=== PATIENT | female | born 1990 | race Caucasian/White ===

== ENCOUNTER 2016-07-21 09:26 | Emergency (ER) | payer OTHER ==
--- NOTE | 2016-07-21 09:38 | PDOC ---
History of Present Illness - General Stated Complaint: ABD PAIN Time Seen by Provider: 07/21/16 09:36 History Source: Patient, Parent(s) Exam Limitations: No Limitations - History of Present Illness Initial Comments: 07/21/16 9:45 CHIEF COMPLAINT: Abdominal pain PCP: Dr. Dejuan Gay HISTORY OF PRESENT ILLNESS: 25 year old female presented to the ED with the chief complaints of severe abdominal pain x 1 day. A/c to the patient, she developed abdominal pain located in the epigastric area, that woke her up from sleep, progressively getting worse, 10/10 in intensity, non radiating, stabbing/sharp in nature, no aggravating or relieving factors, associated with nausea but no episodes of vomiting. Patient had similar episode 2 weeks ago, went to [facility], had an imaging and found to have cholelithiasis and was asked to visit the ED if she develops abdominal pain, hence came in today. Patient had visited ED at [facility] on 02/05/2016 with abdominal pain, had abdominal USG done and was diagnosed with Cholethiasis. Patient had been asked to follow up with a surgeon but the mother says she never knew her daughter had cholelithiasis. Denies headache, fever, chest pain sob, cough, palpitation. Bowel/Bladder habit normal. Patient went for colonoscopy and biopsy on 04/16/[address] Peters. Report: Colon, submucosal mass @ 30cm from anus. Biopsy: colonic mucosa without significant pathologic changes. Ileum: Ileal muscosa with marked reactive hyperplasia of muscosa associated with Lymphoid tissue. 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, lactose intolerant, cholelithiasis PAST SURGICAL HISTORY: As mentioned above Social History: Smoking: Denies Alcohol: Denies Drugs: Denies Family History:Unknown Allergies: Morphine:gets hives Chinese Yogurt Past History - Past Medical History Allergies/Adverse Reactions: Allergies Allergy/AdvReac Type Severity Reaction Status Date / Time morphine Allergy Verified 07/21/16 09:48 CZECH YOGURT Allergy Hives Uncoded 02/05/16 09:28 Home Medications: Ambulatory Orders Oxycodone HCl/Acetaminophen [Percocet 5-325 mg Tablet] 1 tab PO PRN PRN Sertraline HCl 50 mg PO DAILY 02/05/16 Trazodone HCl [Desyrel -] 25 mg PO HS 02/05/16 Polyethylene Glycol 3350 [Miralax (For Daily Use) -] 17 gm PO DAILY #1 bottle Asthma: Yes - Surgical History Abdominal Surgery: Yes (COLOSTOMY NAD ILEOSTOMY BOTH REVERSED) - Immunization History Immunization Up to Date: Yes - Psycho/Social/Smoking Cessation Hx Anxiety: Yes Suicidal Ideation: No Smoking History: Never smoked Have you smoked in the past 12 months: No Number of Cigarettes Smoked Daily: 0 Hx Alcohol Use: No Drug/Substance Use Hx: No Substance Use Type: None Review of Systems - Review of Systems Able to Perform ROS?: Yes Comments:: 07/21/16 11:03 CONSTITUTIONAL: Absent: fever, chills, diaphoresis, generalized weakness, malaise, loss of appetite HEENT: Absent: rhinorrhea, nasal congestion, throat pain, throat swelling, difficulty swallowing, mouth swelling, ear pain, eye pain, visual Changes CARDIOVASCULAR: Absent: chest pain, syncope, palpitations, irregular heart rate, lightheadedness , peripheral edema RESPIRATORY: Absent: cough, shortness of breath, dyspnea with exertion, orthopnea, wheezing, stridor, hemoptysis GASTROINTESTINAL: Present: abdominal pain, nausea Absent:abdominal distension, , vomiting, diarrhea, constipation, melena, hematochezia GENITOURINARY: Absent: dysuria, frequency, urgency, hesitancy, hematuria, flank pain, genital pain MUSCULOSKELETAL: Absent: myalgia, arthralgia, joint swelling SKIN: Absent: rash, itching, pallor HEMATOLOGIC/IMMUNOLOGIC: Absent: easy bleeding, easy bruising, lymphadenopathy, frequent infections ENDOCRINE: Absent: unexplained weight gain, unexplained weight loss, heat intolerance, cold intolerance NEUROLOGIC: Absent: headache, focal weakness or paresthesias, dizziness, unsteady gait, seizure, mental status changes, bladder or bowel incontinence PSYCHIATRIC: Absent: anxiety, depression, suicidal or homicidal ideation, hallucinations. Is the patient limited Yakut proficient: No *Physical Exam - Physical Exam Comments: 07/21/16 11:05 PE: GENERAL: Awake, alert, and fully oriented, in mild abdominal pain HEAD: No signs of trauma EYES: Nystagmus + , PERRLA, EOMI, no pallor or icterus ENT: Auricles normal inspection, hearing grossly normal, nares patent, oropharynx clear without exudates. Moist mucosa NECK: Normal ROM, supple, no lymphadenopathy, JVD, or masses LUNGS: Breath sounds equal, clear to auscultation bilaterally. No wheezes, and no crackles.. HEART: Regular rate and rhythm, normal S1 and S2, no murmurs, rubs or gallops ABDOMEN: Soft, nontender, normoactive bowel sounds. No guarding, no rebound. No masses EXTREMITIES: Normal range of motion, no edema. No clubbing or cyanosis. No cords, erythema, or tenderness NEUROLOGICAL: Cranial nerves II through XII grossly intact. Normal speech, normal gait SKIN: Warm, Dry, normal turgor, no rashes or lesions noted. ED Treatment Course - LABORATORY CBC & Chemistry Diagram: 07/21/16 10:06 07/21/16 10:06 Medical Decision Making - Medical Decision Making 07/21/16 9:30 Patient seen and examined at bed side. Vitals, BP-90/60mmHg, rest unremarkable. Physical examination: Positive finding: Tenderness on palpation over the epigastric area. Will order basic labs, UA, CXR, test IV NS @ 100mls/hr X-ray of abdomen flat/upright USG abdomen 07/21/16 11:00 Patient reassessed. Abdominal pain resolved. Abdominal X-ray shows fecal impaction USG abdomen : Contracted gall bladder with stones. 07/21/[address] Peters 14:20; 15:15; 15:30 A/P: Abdominal pain most likely a combination of fecal impaction and cholelithiasis Patient's abdominal pain completely resolved. She is hemodynamically stable. Will discharge patient home with Miralax She has an appointment on Sunday with Dr. Peters. Illness, Investigation and Plan of care explained to the patient and her mother. They verbalized understanding. Case seen and discussed with Dr. Lemus. *DC/Admit/Observation/Transfer Diagnosis at time of Disposition: Abdominal pain - Discharge Dispostion Disposition: HOME Condition at time of disposition: Guarded Admit: No - Prescriptions Prescriptions: Polyethylene Glycol 3350 [Miralax (For Daily Use) -] 17 gm PO DAILY #1 bottle - Patient Instructions Printed Discharge Instructions: Constipation, Gallstones Additional Instructions: Your blood work is normal. Abdominal x-ray shows fecal impaction. Abdominal ultrasound shows stones in the gall bladder. Please make sure you visit GI doctor as soon as possible for the above mentioned problem. Return to the Emergency Department immediately if your symptoms persist or you develop new symptoms.
[2016-07-21 09:48] VITALS: TEMP 98.7; BMI 20.9
[2016-07-21] MEDS ORDERED: SODIUM CHLORIDE 1,000 ML IV SCH (10:15)
--- NOTE | 2016-07-21 11:01 | PDOC ---
Attending Attestation - Resident Resident Name: Tiffani Simonsny - ED Attending Attestation I have performed the following: I have examined & evaluated the patient, The case was reviewed & discussed with the resident, I agree w/resident's findings & plan, Exceptions are as noted - HPI HPI: 07/21/16 11:01 This is a 25 yo F with a history of Hirschprungs disease, Choleithiasis who presents to the ER with a complaint of abdominal pain. symptoms located in the epigastric area, that woke her up from sleep, progressively getting worse, 10/10 in intensity, non radiating, stabbing/sharp in nature, no aggravating or relieving factors, associated with nausea but no episodes of vomiting. Denies headache, fever, chest pain sob, cough, palpitation. - Physicial Exam PE: 07/21/16 11:07 ON examination: epigastric tenderness to palpation No distention No lower abdominal tenderness No involuntary guarding No rebound tenderness - Medical Decision Making 07/22/16 07:24 Labs sent US demonstrates no PCCF No gallbladder wall thickening Pt has cholelithiasis Abd x ray demonstrates no air fluid levels Pt likely fecal impacted Will discharge to home Multiple calls placed to Dr Peters No response Will discharge Pt has follow up in 2 business days Return to the ER for any other concerns or complaints Heart Score/ECG Review #1 ECG reviewed & interpreted by me at: 11:25 07/21/16 11:25 Twelve-lead EKG was performed and reviewed by me. There is normal sinus rhythm with a normal rate of 66 bpm. The axis is normal. The intervals are normal - pr: 142ms, QRS:94ms, QTc:421ms. There are no ST or T wave abnormalities. RSR'
[2016-07-21 11:22] LABS: BASOPHIL 0.5 % (0-2.0); EOSINOPHIL 1.6 % (0-4.5); MCH 31.6 pg (25.7-33.7); MCHC 33.9 g/dl (32.0-36.0); MEAN CELL VOLUME 93.4 fl (80-96); MEAN PLT VOLUME 8.9 fl (7.5-11.1); NEUTROPHILS 52.1 % (42.8-82.8); PLATELET COUNT 202 K/MM3 (134-434); RDW 12.8 % (11.6-15.6)
[2016-07-21 11:53] LABS: URINE APPEARANCE CLEAR; URINE BILIRUBIN NEGATIVE (NEGATIVE); URINE BLOOD NEGATIVE (NEGATIVE); URINE COLOR DKYELLOW; URINE GLUCOSE (UA) NEGATIVE (NEGATIVE); URINE KETONE NEGATIVE (NEGATIVE); URINE LEUK ESTERASE NEGATIVE (NEGATIVE); URINE NITRITE NEGATIVE (NEGATIVE); URINE UROBILINOGEN NEGATIVE E.U./dl (0.2-1.0)
[2016-07-21 11:54] LABS: URINE PROTEIN 1+ (NEGATIVE)
[2016-07-21 11:55] LABS: URINE HYALINE CAST 2 /lpf; URINE MUCUS MANY; URINE RBC 1 /hpf (0-3); URINE WBC 2 /hpf (3-5)
[2016-07-21 11:56] LABS: ALK PHOS 94 U/L (45-117); ANION GAP 7 (8-16); BILIRUBIN,TOTAL 1.1 mg/dL (0.2-1.0); CALCIUM 9.6 mg/dL (8.5-10.1); CO2 30 mmol/L (21-32); CREATININE 0.6 mg/dL (0.55-1.02); GLUCOSE,RANDOM 82 mg/dL (74-106); SGOT/AST 12 U/L (15-37); SGPT/ALT 20 U/L (12-78); TOT PROT 7.8 g/dl (6.4-8.2)
--- NOTE | 2016-07-21 16:33 | EKG ---
Test Reason : Blood Pressure : / mmHG Vent. Rate : 066 BPM Atrial Rate : 066 BPM P-R Int : 142 ms QRS Dur : 094 ms QT Int : 402 ms P-R-T Axes : -05 029 030 degrees QTc Int : 421 ms NORMAL SINUS RHYTHM INCOMPLETE RIGHT BUNDLE BRANCH BLOCK Confirmed by MD JAIME, PAMELA ([id number]) on 07/21/2016 4:32:55 PM Referred By: Confirmed By:PAMELA SANDOVAL MD
[2016-07-21 16:36] VITALS: BP 90/65; PULSE 75
== END 2016-07-21 16:36 | disposition home or self-care (01) ==
LOC: JER 09:26
DX: K80.20 Calculus of gallbladder without cholecystitis without obstruction (principal); K59.00 Constipation, unspecified
CPT/HCPCS: 36415; 71020-TC; 74020-TC; 76705-TC; 80053; 81003; 81015; 83690; 84703; 85025; 93005; 93010; 99284-25

== ENCOUNTER 2016-07-31 18:11 | Inpatient (IN) | payer OTHER ==
--- NOTE | 2016-07-31 19:21 | PDOC ---
History of Present Illness - General Chief Complaint: Pain Stated Complaint: REVISIT/ADMIT Time Seen by Provider: 07/31/16 19:11 History Source: Patient Exam Limitations: No Limitations - History of Present Illness Initial Comments: CHIEF COMPLAINT: 25 y/o afebrile female sent in for admission by Dr. Peters for +HIDA scan. HISTORY OF PRESENT ILLNESS: The patient was here this morning for a HIDA scan. She was sent home and Dr. Peters called her and told her to come back for admission. The patient states she's had increasing RUQ pain for months. She denies f/c, n/v/d, CP, SOB, back pain. Vital signs on arrival are within normal limits. REVIEW OF SYSTEMS: GENERAL/CONSTITUTIONAL: No fever/chills. No weakness. No weight change. HEAD, EYES, EARS, NOSE AND THROAT: No change in vision. No ear pain or discharge. No sore throat. CARDIOVASCULAR: No chest pain or shortness of breath. RESPIRATORY: No cough, wheezing, or hemoptysis. GASTROINTESTINAL: +RUQ abd pain. No nausea, vomiting, diarrhea. GENITOURINARY: No dysuria, frequency, or change in urination. MUSCULOSKELETAL: No joint or muscle swelling or pain. No neck or back pain. SKIN: No rash or easy bruising. NEUROLOGIC: No headache, vertigo, loss of consciousness, or loss of sensation. PHYSICAL EXAM: GENERAL: The patient is awake, alert, and fully oriented, in no acute distress. She is well appearing and ambulatory. HEAD: Normal with no signs of trauma. ENT: Pupils equal, round and reactive to light, extraocular movements intact, sclera anicteric, conjunctiva clear. Neck supple. LUNGS: Clear to auscultation bilaterally. Normal excursion. No respiratory distress or use of accessory muscles. CV: RRR, S1/S2, no MRG. Cap refill < 2 sec. ABDOMEN: RUQ TTP with +cantor's sign. No rebound, guarding or rigidity. EXTREMITIES: Normal range of motion, no edema. NEUROLOGICAL: Normal speech, normal gait. CN II-XII grossly intact. PSYCH: Normal mood, normal affect. SKIN: Warm, dry, normal turgor, no rashes or lesions noted. Past History - Past Medical History Allergies/Adverse Reactions: Allergies Allergy/AdvReac Type Severity Reaction Status Date / Time morphine Allergy Verified 07/31/16 18:21 NORWEGIAN YOGURT Allergy Hives Uncoded 07/31/16 18:21 Home Medications: Ambulatory Orders Oxycodone HCl/Acetaminophen [Percocet 5-325 mg Tablet] 1 tab PO PRN PRN Sertraline HCl 50 mg PO DAILY 02/05/16 Trazodone HCl [Desyrel -] 25 mg PO HS 02/05/16 Polyethylene Glycol 3350 [Miralax (For Daily Use) -] 17 gm PO DAILY #1 bottle Asthma: Yes Psychiatric Problems: Yes (ANXEITY,PANIC, ADHD,SCHIZOPH) - Surgical History Abdominal Surgery: Yes (COLOSTOMY NAD ILEOSTOMY BOTH REVERSED) - Immunization History Immunization Up to Date: Yes - Psycho/Social/Smoking Cessation Hx Anxiety: Yes Suicidal Ideation: No Smoking History: Never smoked Have you smoked in the past 12 months: No Number of Cigarettes Smoked Daily: 0 Information on smoking cessation initiated: No Hx Alcohol Use: No Drug/Substance Use Hx: No Substance Use Type: None *Physical Exam - Vital Signs Last Vital Signs Temp Pulse Resp BP Pulse Ox 97.6 F 84 18 103/56 100 07/31/16 18:23 07/31/16 18:23 07/31/16 18:23 07/31/16 18:23 07/31/16 18:23 Medical Decision Making - Medical Decision Making A/P: 25 y/o female sent in by Dr. Peters for +hida scan and cholecystectomy tomorrow. Plan is to draw basic labs and call Dr. Valles for admission. Pt made NPO Spoke with Dr. Valles who states to admit to Dr. Vazquez. Pt made aware of plan. *DC/Admit/Observation/Transfer Diagnosis at time of Disposition: Cholelithiasis Qualifiers: Cholelithiasis location: gallbladder Cholecystitis presence: without cholecystitis Biliary obstruction: with biliary obstruction Qualified Code(s): K80.21 - Calculus of gallbladder without cholecystitis with obstruction - Discharge Dispostion Condition at time of disposition: Stable Admit: Yes - Referrals Referrals: Dejuan Gay [Primary Care Provider] -
[2016-07-31] MEDS ORDERED: SODIUM CHLORIDE 1,000 ML IV STA (19:22)
--- NOTE | 2016-07-31 19:51 | PDOC ---
*Physical Exam - Vital Signs Last Vital Signs Temp Pulse Resp BP Pulse Ox 97.6 F 84 18 103/56 100 07/31/16 18:23 07/31/16 18:23 07/31/16 18:23 07/31/16 18:23 07/31/16 18:23 Medical Decision Making - Medical Decision Making 07/31/16 19:50 agree with care from GRECIA Martinez. Pt for admission to Dr. Vazquez service for a +HIDA scan. Pt hemodynamically stable. *DC/Admit/Observation/Transfer Diagnosis at time of Disposition: Cholelithiasis Qualifiers: Cholelithiasis location: gallbladder Cholecystitis presence: without cholecystitis Biliary obstruction: with biliary obstruction Qualified Code(s): K80.21 - Calculus of gallbladder without cholecystitis with obstruction - Discharge Dispostion Condition at time of disposition: Stable - Referrals Referrals: Dejuan Gay [Primary Care Provider] - - Patient Instructions - Post Discharge Activity
[2016-07-31 20:50] LABS: HCG,QUALITATIVE URINE NEGATIVE
[2016-07-31 20:52] LABS: URINE APPEARANCE CLEAR; URINE BILIRUBIN NEGATIVE (NEGATIVE); URINE BLOOD NEGATIVE (NEGATIVE); URINE COLOR LTYELLOW; URINE GLUCOSE (UA) NEGATIVE (NEGATIVE); URINE KETONE NEGATIVE (NEGATIVE); URINE LEUK ESTERASE NEGATIVE (NEGATIVE); URINE NITRITE NEGATIVE (NEGATIVE); URINE PROTEIN NEGATIVE (NEGATIVE); URINE UROBILINOGEN 4.0 E.U/dl E.U./dl (0.2-1.0)
[2016-07-31 21:00] LABS: ALBUMIN 4.5 g/dl (3.4-5.0); ALK PHOS 102 U/L (45-117); ANION GAP 7 (8-16); BILIRUBIN,TOTAL 1.2 mg/dL (0.2-1.0); BLOOD UREA NITROGEN 15 mg/dL (7-18); CALCIUM 9.8 mg/dL (8.5-10.1); CHLORIDE 103 mmol/L (98-107); CO2 31 mmol/L (21-32); CREATININE 0.6 mg/dL (0.55-1.02); GLUCOSE,RANDOM 81 mg/dL (74-106); LIPASE 98 U/L (73-393); SGOT/AST 10 U/L (15-37); SGPT/ALT 16 U/L (12-78); SODIUM 141 mmol/L (136-145); TOT PROT 8.4 g/dl (6.4-8.2)
[2016-07-31 21:31] LABS: BASO % 0.7 % (0-2.0); EOS % 1.9 % (0-4.5); HEMATOCRIT 36.2 % (32.4-45.2); HEMOGLOBIN 12.3 GM/dL (10.7-15.3); LYMPH % 32.4 % (8-40); MCH 31.6 pg (25.7-33.7); MEAN PLT VOLUME 9.4 fl (7.5-11.1); MONO % 7.1 % (3.8-10.2); NEUT % 57.9 % (42.8-82.8); PLATELET COUNT 193 K/MM3 (134-434); RBC 3.89 M/mm3 (3.60-5.2); RDW 12.5 % (11.6-15.6); WHITE BLOOD COUNT 4.8 K/mm3 (4.0-10.0)
[2016-07-31] MEDS ORDERED: ACETAMINOPHEN 325 MG TABLET (FP) PO PRN (21:43)
[2016-07-31] MEDS ORDERED: traMADol HCL 50 MG TABLET ONE (22:32)
[2016-07-31] MEDS ORDERED: PIPERACILLIN/TAZOB 3.375 GM 50 ML IVPB ONE (22:33)
[2016-07-31] MEDS: HEPARIN NA (PORCINE) 5,000 UNITS/ML 1ML VIAL SQ SCH (22:44)
[2016-07-31] MEDS: PIPERACILLIN/TAZOB 3.375 GM/50 ML PRE-DOCKED IVPB SCH (22:44)
[2016-07-31] MEDS: traZODone HCL 50 MG TABLET (FP) PO SCH (22:45)
[2016-07-31] MEDS ORDERED: HEPARIN NA (PORCINE) 5,000 UNITS/ML 1ML VIAL ONE (22:52)
[2016-07-31] MEDS: D5-1/2NS+20 MEQ KCL - 1,000 ML IV SCH (23:45)
[2016-08-01 00:15] VITALS: BMI 17.2
[2016-08-01] MEDS: KETOROLAC TROMETHAMINE 30 MG/1 ML VIAL IM PRN ×3 (00:57→14:35)
[2016-08-01] MEDS: PIPERACILLIN/TAZOB 3.375 GM/50 ML PRE-DOCKED IVPB SCH (02:12)
[2016-08-01 08:02] LABS: BASO % 0.8 % (0-2.0); EOS % 2.1 % (0-4.5); HEMATOCRIT 32.8 % (32.4-45.2); HEMOGLOBIN 11.3 GM/dL (10.7-15.3); LYMPH % 35.7 % (8-40); MCHC 34.3 g/dl (32.0-36.0); MEAN CELL VOLUME 93.2 fl (80-96); MONO % 9.8 % (3.8-10.2); NEUT % 51.6 % (42.8-82.8); PLATELET COUNT 158 K/MM3 (134-434); RBC 3.52 M/mm3 (3.60-5.2); RDW 12.5 % (11.6-15.6); WHITE BLOOD COUNT 3.6 K/mm3 (4.0-10.0)
[2016-08-01 08:27] LABS: INR 1.2 (0.82-1.09); PROTHROMBIN TIME (PATIENT) 13.3 SEC (9.98-11.88)
[2016-08-01 08:30] LABS: ACTIVATED PTT 33.7 SECONDS (26.9-34.4)
[2016-08-01 08:31] LABS: CHLORIDE 107 mmol/L (98-107); POTASSIUM 3.8 mmol/L (3.5-5.1); SODIUM 142 mmol/L (136-145)
[2016-08-01 08:42] LABS: ALBUMIN 3.8 g/dl (3.4-5.0); ALK PHOS 79 U/L (45-117); ANION GAP 6 (8-16); BILIRUBIN,TOTAL 1.9 mg/dL (0.2-1.0); BLOOD UREA NITROGEN 10 mg/dL (7-18); CO2 29 mmol/L (21-32); CREATININE 0.7 mg/dL (0.55-1.02); GLUCOSE,RANDOM 88 mg/dL (74-106); SGOT/AST 10 U/L (15-37); SGPT/ALT 16 U/L (12-78); TOT PROT 6.8 g/dl (6.4-8.2)
[2016-08-01] MEDS: HEPARIN NA (PORCINE) 5,000 UNITS/ML 1ML VIAL SQ SCH ×2 (09:04→22:34)
[2016-08-01] MEDS: SERTRALINE HCL 50 MG TABLET (FP) PO SCH (09:04)
[2016-08-01] MEDS: D5-1/2NS+20 MEQ KCL - 1,000 ML IV SCH ×2 (09:09→22:34)
[2016-08-01] MEDS ORDERED: PIPERACILLIN/TAZOB 3.375 GM/50 ML PRE-DOCKED IVPB SCH (10:00)
--- NOTE | 2016-08-01 11:01 | CONSULT ---
Consult Consult Specialty:: Infectious Disease Referred by:: Dr. Vazquez Reason for Consultation:: Cholecystitis - History of Present Illness Chief Complaint: abdominal pain History of Present Illness: this is a 25F with a PMH of hirschsrpungs disease s/p colostomy with reversal s/ p ilesotomy with reversal who presnted to the hospital yesterday for outpatient HIDA scan. She was then called back after the HIDA was positive and told to come in for admission. She states she has had symptomatic cholelithiasis for about 2-3 years now. e. At the moment she denies nausea vomiting fevers chills diarrhea constipation chest pain or shortness of breath. Denies hematuria or dysuria. She states she still has abdominal pain at this time that is mostly localized in the epigastric and RUQ regions. in relation to food, she has abdominal pain on both an empty stomach and post prandially. Abdominal pain is worse with fatty foods and foods rich in sugar per the patient. 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, lactose intolerant, cholelithiasis - Past Surgical History Additional Surgical History: exlap x2 colostomy with reversal ileostomy with reversal - Alcohol/Substance Use Hx Alcohol Use: No - Smoking History Smoking history: Never smoked Have you smoked in the past 12 months: No Aproximately how many cigarettes per day: 0 - Social History Usual Living Arrangement: With Parent Home Medications - Allergies Allergies/Adverse Reactions: Allergies Allergy/AdvReac Type Severity Reaction Status Date / Time morphine Allergy Verified 07/31/16 18:21 KAZAKH YOGURT Allergy Hives Uncoded 07/31/16 18:21 - Home Medications Home Medications: Ambulatory Orders Oxycodone HCl/Acetaminophen [Percocet 5-325 mg Tablet] 1 tab PO PRN PRN Sertraline HCl 50 mg PO DAILY 02/05/16 Trazodone HCl [Desyrel -] 25 mg PO HS 02/05/16 Polyethylene Glycol 3350 [Miralax (For Daily Use) -] 17 gm PO DAILY #1 bottle Review of Systems - Review of Systems Constitutional: reports: No Symptoms Eyes: reports: No Symptoms HENT: reports: No Symptoms Neck: reports: No Symptoms Cardiovascular: reports: No Symptoms Respiratory: reports: No Symptoms Gastrointestinal: reports: Abdominal Pain, Bloating Genitourinary: reports: No Symptoms Musculoskeletal: reports: No Symptoms Integumentary: reports: No Symptoms Psychiatric: reports: Anxiety Physical Exam Vital Signs: Vital Signs Temperature 97.8 F 08/01/16 09:00 Pulse Rate 64 08/01/16 09:00 Respiratory Rate 18 08/01/16 09:00 Blood Pressure 90/65 08/01/16 09:00 O2 Sat by Pulse Oximetry (%) 99 07/31/16 21:30 Constitutional: Yes: No Distress, Calm, Thin Eyes: Yes: Conjunctiva Clear HENT: Yes: Atraumatic, Normocephalic Neck: Yes: Supple, Trachea Midline Cardiovascular: Yes: Regular Rate and Rhythm Respiratory: Yes: Regular, CTA Bilaterally Gastrointestinal: Yes: Soft, Tenderness, Epigastrium, Other (RUQ tenderness Positive cantor's) Musculoskeletal: Yes: WNL Extremities: Yes: WNL Edema: No Neurological: Yes: Alert, Oriented Psychiatric: Yes: Alert, Oriented Labs: CBC, BMP 08/01/16 06:00 08/01/16 06:00 Imaging - Results Ultrasound: Report Reviewed, Image Reviewed (old ultrasounds reviewed) Other: Report Reviewed, Image Reviewed (HIDA scan reviewed) Problem List - Problems (1) Cholelithiasis Code(s): K80.20 - CALCULUS OF GALLBLADDER W/O CHOLECYSTITIS W/O OBSTRUCTION Qualifiers: Cholelithiasis location: gallbladder Cholecystitis presence: without cholecystitis Biliary obstruction: with biliary obstruction Qualified Code(s): K80.21 - Calculus of gallbladder without cholecystitis with obstruction (2) Abdominal pain Code(s): R10.9 - UNSPECIFIED ABDOMINAL PAIN (3) Chronic abdominal pain Code(s): R10.9 - UNSPECIFIED ABDOMINAL PAIN G89.29 - OTHER CHRONIC PAIN (4) Chronic cholecystitis with calculus Code(s): K80.10 - CALCULUS OF GALLBLADDER W CHRONIC CHOLECYST W/O OBSTRUCTION (5) Hirschsprung's disease Code(s): Q43.1 - HIRSCHSPRUNG'S DISEASE Assessment/Plan 25F with long standing symptomatic cholelithiasis presents to the hospital after a positive HIDA scan Acute cholecystitis vs chronic cholecystitis no leukocytosis no fevers no signs or symptoms of acute infectious process at this time likely chronic cholecystitis no indication for antibiotics at this time patient needs surgical evaluation pain control please reconsult PRN thank you for this consult and allowing us to participate in the care of this patient Case discussed with attending Dr. Magallon
[2016-08-01] MEDS ORDERED: oxyCODONE HCL 5 MG TABLET PO ONE (11:48)
--- NOTE | 2016-08-01 14:46 | HP ---
Admitting History and Physical - Primary Care Physician PCP: Meryl Vazquez - Admission Chief Complaint: ABD PAIN History of Present Illness: 25F with a PMH of hirschsrpungs disease s/p colostomy with reversal s/p ilesotomy with reversal who presnted to the hospital yesterday for outpatient HIDA scan. She was then called back after the HIDA was positive and told to come in for admission. She states she has had symptomatic cholelithiasis for about 2-3 years now. e. At the moment she denies nausea vomiting fevers chills diarrhea constipation chest pain or shortness of breath. Denies hematuria or dysuria. She states she still has abdominal pain at this time that is mostly localized in the epigastric and RUQ regions. in relation to food, she has abdominal pain on both an empty stomach and post prandially. Abdominal pain is worse with fatty foods and foods rich in sugar per the patient. History Source: Patient - Past Medical History Psych: Yes: Other - Smoking History Smoking history: Never smoked Have you smoked in the past 12 months: No Aproximately how many cigarettes per day: 0 - Alcohol/Substance Use Hx Alcohol Use: No Home Medications - Allergies Allergies/Adverse Reactions: Allergies Allergy/AdvReac Type Severity Reaction Status Date / Time morphine Allergy Verified 07/31/16 18:21 MALTESE YOGURT Allergy Hives Uncoded 07/31/16 18:21 - Home Medications Home Medications: Ambulatory Orders Oxycodone HCl/Acetaminophen [Percocet 5-325 mg Tablet] 1 tab PO PRN PRN Sertraline HCl 50 mg PO DAILY 02/05/16 Trazodone HCl [Desyrel -] 25 mg PO HS 02/05/16 Polyethylene Glycol 3350 [Miralax (For Daily Use) -] 17 gm PO DAILY #1 bottle Review of Systems - Review of Systems Constitutional: reports: No Symptoms Eyes: reports: No Symptoms HENT: reports: No Symptoms Neck: reports: No Symptoms Cardiovascular: reports: No Symptoms Respiratory: reports: No Symptoms Gastrointestinal: reports: Abdominal Pain Genitourinary: reports: No Symptoms Musculoskeletal: reports: No Symptoms Integumentary: reports: No Symptoms Neurological: reports: Pre-Existing Deficit Endocrine: reports: No Symptoms Hematology/Lymphatic: reports: No Symptoms Psychiatric: reports: Anxiety Physical Examination Vital Signs: Vital Signs Temperature 97.3 F L 08/01/16 14:28 Pulse Rate 69 08/01/16 14:28 Respiratory Rate 20 08/01/16 14:28 Blood Pressure 104/63 08/01/16 14:28 O2 Sat by Pulse Oximetry (%) 99 07/31/16 21:30 Constitutional: Yes: Mild Distress Eyes: Yes: WNL HENT: Yes: WNL Neck: Yes: WNL Cardiovascular: Yes: WNL Respiratory: Yes: WNL Gastrointestinal: Yes: Tenderness Musculoskeletal: Yes: Muscle Weakness Extremities: Yes: WNL Edema: No Peripheral Pulses WNL: Yes Integumentary: Yes: WNL Wound/Incision: Yes: Clean/Dry Neurological: Yes: WNL ...Motor Strength: WNL Psychiatric: Yes: WNL Labs: CBC, BMP 08/01/16 06:00 08/01/16 06:00 Problem List - Problems (1) Cholelithiasis Code(s): K80.20 - CALCULUS OF GALLBLADDER W/O CHOLECYSTITIS W/O OBSTRUCTION Qualifiers: Cholelithiasis location: gallbladder Cholecystitis presence: without cholecystitis Biliary obstruction: with biliary obstruction Qualified Code(s): K80.21 - Calculus of gallbladder without cholecystitis with obstruction (2) Chronic abdominal pain Code(s): R10.9 - UNSPECIFIED ABDOMINAL PAIN G89.29 - OTHER CHRONIC PAIN (3) Chronic cholecystitis with calculus Code(s): K80.10 - CALCULUS OF GALLBLADDER W CHRONIC CHOLECYST W/O OBSTRUCTION (4) Hirschsprung's disease Code(s): Q43.1 - HIRSCHSPRUNG'S DISEASE Assessment/Plan WILL ORDER EKG FOR MEDICAL CLEARANCE SHOULD NOT HAVE ANY CONCERN FOR LAPCHOL LABS ORDERED MOTHER OF THE PATIENT MAKES DECISIONS, ANESTHESIS OBTAINING CONSENT FROM MOM.
--- NOTE | 2016-08-01 17:04 | CONSULT ---
- Consultation REQUESTING PROVIDER: Taylor CONSULT REQUEST: We have been asked to surgically evaluate this patient for abdominal pain found to be due to sympotomatic gallbladder disease PCP:Meryl Vazquez HISTORY OF PRESENT ILLNESS: Patient was seen in the ER 07/24/16 for RUQ abdominal pain and had an US showing cholelithiasis; she was d/c'ed to OPD f/u and then had a HIDA scan which was "positive" and was told to come back to the hospital to be admitted; we were called in consultation; she has minimal pain at this time; she has NOC. She has had the pain for # months on and off related to eating. PMHx: Psych issues PSHx: 05/03/98; laparoscopic assisted Soave endo-rectal pull through with proctectomy and protective loop ileostomy and 07/08/98ileostomy takedown anl dilatation and appendectomy. Home Medications Medication Instructions Recorded Oxycodone HCl/Acetaminophen 1 tab PO PRN PRN 02/05/16 [Percocet 5-325 mg Tablet] Sertraline HCl 50 mg PO DAILY 02/05/16 Trazodone HCl [Desyrel -] 25 mg PO HS 02/05/16 Polyethylene Glycol 3350 [Miralax 17 gm PO DAILY #1 bottle 07/21/16 (For Daily Use) -] Allergies Allergy/AdvReac Type Severity Reaction Status Date / Time morphine Allergy Verified 07/31/16 18:21 KHMER YOGURT Allergy Hives Uncoded 07/31/16 18:21 REVIEW OF SYSTEMS: Psych issues PHYSICAL EXAM: GENERAL: Awake, alert, and fully oriented, in no acute distress. HEAD: Normal with no signs of trauma. EYES: PERRL, sclera anicteric, conjunctiva clear. NECK: Normal ROM, supple without lymphadenopathy, JVD, or masses. LUNGS: Clear to auscultation bilat anteriorly. No wheezes, and no crackles. No accessory muscle use. HEART: Regular rate and rhythm. No murmurs ABDOMEN: Soft, nontender, not distended, normoactive bowel sounds, no guarding, no rebound, no masses. No organomegaly. Healed surgical scars w/o hernias. MUSCULOSKELETAL: Normal ROM at all joints. No bony deformities or tenderness. No CVA tenderness. UPPER EXTREMITIES: 2+ pulses, warm, well-perfused. No cyanosis. Cap refill <2 seconds. No peripheral edema. LOWER EXTREMITIES: 2+ pulses, warm, well-perfused. No calf tenderness. No peripheral edema. NEUROLOGICAL: Normal speech, gait not observed. PSYCH: Cooperative. Good eye contact. Appropriate mood and affect. SKIN: Warm, dry, normal turgor, no rashes or lesions noted. Vital Signs Temperature 97.3 F L 08/01/16 14:28 Pulse Rate 69 08/01/16 14:28 Respiratory Rate 20 08/01/16 14:28 Blood Pressure 104/63 08/01/16 14:28 O2 Sat by Pulse Oximetry (%) 99 07/31/16 21:30 Lab Results WBC 3.6 K/mm3 (4.0-10.0) L 08/01/16 06:00 RBC 3.52 M/mm3 (3.60-5.2) L 08/01/16 06:00 Hgb 11.3 GM/dL (10.7-15.3) 08/01/16 06:00 Hct 32.8 % (32.4-45.2) 08/01/16 06:00 MCV 93.2 fl (80-96) 08/01/16 06:00 MCHC 34.3 g/dl (32.0-36.0) 08/01/16 06:00 RDW 12.5 % (11.6-15.6) 08/01/16 06:00 Plt Count 158 K/MM3 (134-434) 08/01/16 06:00 Sodium 142 mmol/L (136-145) 08/01/16 06:00 Potassium 3.8 mmol/L (3.5-5.1) 08/01/16 06:00 Chloride 107 mmol/L (98-107) 08/01/16 06:00 Carbon Dioxide 29 mmol/L (21-32) 08/01/16 06:00 Anion Gap 6 (8-16) L 08/01/16 06:00 BUN 10 mg/dL (7-18) D 08/01/16 06:00 Creatinine 0.7 mg/dL (0.55-1.02) 08/01/16 06:00 Random Glucose 88 mg/dL (74-106) 08/01/16 06:00 Calcium 9.0 mg/dL (8.5-10.1) 08/01/16 06:00 INR 1.20 (0.82-1.09) H 08/01/16 06:00 US/labs/HIDA reviewed. IMP: biliary colic; doubt acute cholecystiis w/absence of fever and elevated WBC count PLAN: D/W patient and her mother laparoscopic possible open cholecytectomy; r/b/ t/alternatives discussed; for OR 08/02/16. Visit type - Case Type Case Type: ED Admission - Emergency Emergency Visit: Yes ED Registration Date: 07/31/16 Care time: The patient presented to the Emergency Department on the above date and was hospitalized for further evaluation of their emergent condition. - New patient This patient is new to me today: Yes Date on this admission: 08/01/16
--- NOTE | 2016-08-01 17:58 | EKG ---
Test Reason : Blood Pressure : / mmHG Vent. Rate : 063 BPM Atrial Rate : 063 BPM P-R Int : 128 ms QRS Dur : 096 ms QT Int : 400 ms P-R-T Axes : -16 030 049 degrees QTc Int : 409 ms NORMAL SINUS RHYTHM INCOMPLETE RIGHT BUNDLE BRANCH BLOCK BORDERLINE ECG WHEN COMPARED WITH ECG OF 21-JUL-2016 10:33, NO SIGNIFICANT CHANGE WAS FOUND Confirmed by MARY ELLEN DIMAS MD ([id number]) on 08/01/2016 5:57:49 PM Referred By: MARYAM MCKEON Confirmed By:MARY ELLEN DIMAS MD
[2016-08-01] MEDS: traZODone HCL 50 MG TABLET (FP) PO SCH (22:33)
[2016-08-02] MEDS: KETOROLAC TROMETHAMINE 30 MG/1 ML VIAL IM PRN ×2 (02:20→20:25)
[2016-08-02 07:45] LABS: HEMATOCRIT 31.1 % (32.4-45.2); HEMOGLOBIN 10.7 GM/dL (10.7-15.3); MCH 31.7 pg (25.7-33.7); MCHC 34.5 g/dl (32.0-36.0); MEAN CELL VOLUME 91.7 fl (80-96); MEAN PLT VOLUME 8.9 fl (7.5-11.1); PLATELET COUNT 140 K/MM3 (134-434); RBC 3.39 M/mm3 (3.60-5.2); RDW 12.4 % (11.6-15.6); WHITE BLOOD COUNT 2.5 K/mm3 (4.0-10.0)
[2016-08-02 08:29] LABS: CHLORIDE 109 mmol/L (98-107); POTASSIUM 4.2 mmol/L (3.5-5.1); SODIUM 143 mmol/L (136-145)
[2016-08-02 08:50] LABS: ALBUMIN 3.4 g/dl (3.4-5.0); ALK PHOS 78 U/L (45-117); ANION GAP 7 (8-16); BILIRUBIN,TOTAL 1.2 mg/dL (0.2-1.0); BLOOD UREA NITROGEN 5 mg/dL (7-18); CO2 27 mmol/L (21-32); CREATININE 0.5 mg/dL (0.55-1.02); GLUCOSE,RANDOM 96 mg/dL (74-106); SGOT/AST 17 U/L (15-37); SGPT/ALT 32 U/L (12-78); TOT PROT 6.5 g/dl (6.4-8.2)
[2016-08-02] MEDS: SERTRALINE HCL 50 MG TABLET (FP) PO SCH (09:18)
[2016-08-02] MEDS: HEPARIN NA (PORCINE) 5,000 UNITS/ML 1ML VIAL SQ SCH ×2 (09:26→21:53)
[2016-08-02] MEDS ORDERED: KETOROLAC TROMETHAMINE 30 MG/1 ML VIAL ONE (11:15)
[2016-08-02] MEDS ORDERED: ceFAZolin SODIUM 1 GM VIAL ONE (11:15)
[2016-08-02] MEDS ORDERED: PROPOFOL 20 ML ONE (11:15)
[2016-08-02] MEDS ORDERED: DEXAMETHASONE SOD PHOSPHATE 4 MG/1 ML VIAL ONE (11:15)
[2016-08-02] MEDS ORDERED: SODIUM CHLORIDE 0.9% P/F 10 ML VIAL IJ ONE (11:15)
[2016-08-02] MEDS ORDERED: MIDAZOLAM HCL 2 MG/2 ML SINGLE DOSE VIAL ONE (11:15)
[2016-08-02] MEDS ORDERED: ROCURONIUM BROMIDE 50 MG/5 ML VIAL ONE (11:15)
[2016-08-02] MEDS ORDERED: ceFAZolin SODIUM 1 GM VIAL IVPB ONE (12:22)
[2016-08-02] MEDS ORDERED: ONDANSETRON 4 MG/2 ML VIAL IVPUSH PRN ×2 (12:45→15:00)
[2016-08-02] MEDS ORDERED: LACTATED RINGERS SOLUTION 1,000 ML IV SCH ×2 (12:45→15:00)
[2016-08-02] MEDS ORDERED: NEOSTIGMINE METHYLSULFATE 0.5 MG/ML - 10 ML MDV ONE (13:07)
[2016-08-02] MEDS ORDERED: GLYCOPYRROLATE 0.2 MG/1 ML VIAL ONE (13:07)
[2016-08-02] MEDS ORDERED: BUPIVACAINE HCL/PF 0.5% (5MG/ML) 10 ML VIAL IJ ONE ×2 (13:10)
[2016-08-02] MEDS ORDERED: BENZOIN/ALOE VERA/STORAX/TOLU 58 ML BOTTLE ONE (13:19)
--- NOTE | 2016-08-02 13:29 | OP ---
Operative Note - Note: Operative Date: 08/02/16 Pre-Operative Diagnosis: acute cholecystitis/cholelithiasis Operation: lap ricarda Findings: acute cholecystitis/cholelithiasis Post-Operative Diagnosis: Same as Pre-op Surgeon: Joe Case Athletic Equipment Manager: Matt Rosales Anesthesia: General Specimens Removed: gallbladder and contents Estimated Blood Loss (mls): 15 Drains & Tubes with Location: none
--- NOTE | 2016-08-02 13:35 | SURG ---
Surgery Sales Specialist Note Sales Specialist: Matt Rosales PA-C Date of Service: 08/02/16 Diagnosis: acute cholecystitis/cholelithiasis Procedure: Laparoscopic cholecystectomy I was present for the entirety of the operative procedure. For further detail, please refer to operative report. Visit type - Case Type Case Type: ED Admission
[2016-08-02] MEDS ORDERED: D5-1/2NS+20 MEQ KCL - 1,000 ML IV SCH (15:00)
[2016-08-02] MEDS ORDERED: ACETAMINOPHEN 325 MG TABLET (FP) PO PRN (15:00)
[2016-08-02] MEDS ORDERED: oxyCODONE HCL 5 MG TABLET PO PRN (15:08)
[2016-08-02] MEDS ORDERED: ACETAMINOPHEN 1000 MG/100 ML VIAL (NON FORMULARY) IVPB ONE (16:00)
--- NOTE | 2016-08-02 16:00 | OP ---
DATE OF OPERATION: 08/02/2016 PREOPERATIVE DIAGNOSIS: Acute cholecystitis, cholelithiasis. POSTOPERATIVE DIAGNOSIS: Acute cholecystitis, cholelithiasis. PROCEDURE: Laparoscopic cholecystectomy. SURGEON: Joe Case MD STONE CARRIAGE OPERATOR: Matt Rosales PA-C ANESTHESIA: General. OPERATIVE FINDINGS: There was cholelithiasis with acute cholecystitis. There was normal anatomy in the triangle of Calot. There were adhesions from previous surgery. The rest of the findings were unremarkable. PROCEDURE: The patient was placed on the operating table in the supine position, and after the induction of general anesthesia the patient's abdomen was prepped with ChloraPrep and draped in sterile fashion. A time-out was taken and an incision made above the umbilicus and taken down through the abdominal wall. The peritoneal cavity was entered under direct vision and a balloon port was placed. Laparoscopy was carried out and the previously noted findings were observed. Additional 5-mm lateral ports and a subxiphoid 11-mm port were placed and then the gallbladder was placed on cephalad and lateral traction and dissection begun in the triangle of Calot. Adhesions were taken down using a combination of blunt dissection and electrocautery. The neck of the gallbladder was identified and the cystic duct identified and dissected proximally and distally for length. The peritoneum was opened medially over the cystic artery and it too was dissected proximally and distally for length. Critical view of safety was taken after the peritoneum was completely mobilized medially and laterally and then the duct was clipped twice proximally and twice medially with 10-mm clips and divided using the Endoshears. The artery was similarly clipped and divided. Next the gallbladder was removed in a retrograde fashion from the liver bed using electrocautery. Prior to removal from the edge of the liver, hemostasis was checked for and noted to be good and then the gallbladder was removed from the edge of the liver and placed in an EndoCatch and brought out through the subxiphoid port. Pneumoperitoneum was reestablished and hemostasis verified. All port sites were then removed under laparoscopic vision without evidence of bleeding from the port sites and the pneumoperitoneum was evacuated. Each port site was infiltrated with 0.5% Marcaine and the defect at the umbilicus was closed with a single [id number] 2-0 Vicryl fascial suture. The skin edges in all cases were reapproximated with 4-0 Biosyn followed by Steri-Strips and Band-Aid dressings. The patient was then aroused from general anesthesia and transferred to the Post Anesthesia Care Unit in stable condition awake and alert. ESTIMATED BLOOD LOSS: 15 mL. REPLACEMENT: Crystalloid. DRAINS: None. SPECIMENS: Gallbladder and contents to Pathology. I, Joe Case, was physically present in the operating room from the time the patient was placed on the operating table until she was transferred to the Post Anesthesia Care Unit in my accompaniment. MD TARUN Valdez/[id number]
--- NOTE | 2016-08-02 17:07 | PN ---
Progress Note, Physician Chief Complaint: awake alert doing well incentive spirometry ordered - Current Medication List Current Medications: Active Medications Acetaminophen (Tylenol -) 650 mg PO Q4H PRN PRN Reason: FEVER OR PAIN Heparin Sodium (Porcine) (Heparin -) 5,000 unit SQ BID BARNEY Lactated Ringer's (Lactated Ringers Solution) 1,000 mls @ 125 mls/hr IV ASDIR BARNEY Last Admin: 08/02/16 16:30 Dose: Not Given Potassium Chloride/Dextrose/Sod Cl (D5-1/2ns+20 Meq Kcl -) 1,000 mls @ 100 mls/ hr IV ASDIR BARNEY Last Admin: 08/02/16 16:27 Dose: Not Given Ketorolac Tromethamine (Toradol Injection -) 30 mg IM Q6H PRN Stop: 08/05/16 23:51 Ondansetron HCl (Zofran Injection) 4 mg IVPUSH Q6H PRN PRN Reason: NAUSEA AND/OR VOMITING Stop: 08/02/16 18:46 Oxycodone HCl (Roxicodone -) 5 mg PO Q4H PRN PRN Reason: PAIN Last Admin: 08/02/16 16:32 Dose: 5 mg Sertraline HCl (Zoloft -) 50 mg PO DAILY BARNEY Trazodone HCl (Desyrel -) 25 mg PO HS [facility] - Objective Vital Signs: Vital Signs Temperature 98.2 F 08/02/16 15:15 Pulse Rate 80 08/02/16 15:15 Respiratory Rate 16 08/02/16 15:15 Blood Pressure 100/58 08/02/16 15:15 O2 Sat by Pulse Oximetry (%) 100 08/02/16 15:00 Constitutional: Yes: Mild Distress Eyes: Yes: WNL HENT: Yes: WNL Neck: Yes: WNL Cardiovascular: Yes: WNL Respiratory: Yes: WNL Gastrointestinal: Yes: Tenderness Genitourinary: Yes: WNL Musculoskeletal: Yes: WNL Extremities: Yes: WNL Edema: No Peripheral Pulses WNL: Yes Wound/Incision: Yes: Clean/Dry Neurological: Yes: WNL ...Motor Strength: WNL Psychiatric: Yes: WNL Labs: CBC, BMP 08/02/16 06:00 08/02/16 06:00 INR, PTT INR 1.20 (0.82-1.09) H 08/01/16 06:00 Problem List - Problems (1) Cholelithiasis Code(s): K80.20 - CALCULUS OF GALLBLADDER W/O CHOLECYSTITIS W/O OBSTRUCTION Qualifiers: Cholelithiasis location: gallbladder Cholecystitis presence: without cholecystitis Biliary obstruction: with biliary obstruction Qualified Code(s): K80.21 - Calculus of gallbladder without cholecystitis with obstruction (2) Chronic abdominal pain Code(s): R10.9 - UNSPECIFIED ABDOMINAL PAIN G89.29 - OTHER CHRONIC PAIN (3) Chronic cholecystitis with calculus Code(s): K80.10 - CALCULUS OF GALLBLADDER W CHRONIC CHOLECYST W/O OBSTRUCTION (4) Hirschsprung's disease Code(s): Q43.1 - HIRSCHSPRUNG'S DISEASE Assessment/Plan post lap-chol did well nad oob to chair incentive spirometry dc home in am po diet started
[2016-08-02] MEDS ORDERED: traZODone HCL 50 MG TABLET (FP) PO SCH (22:00)
[2016-08-03] MEDS: KETOROLAC TROMETHAMINE 30 MG/1 ML VIAL IM PRN ×3 (02:28→17:01)
[2016-08-03] MEDS: HEPARIN NA (PORCINE) 5,000 UNITS/ML 1ML VIAL SQ SCH (09:41)
--- NOTE | 2016-08-03 09:56 | PN ---
Progress Note (short form) - Note Progress Note: Attending Surgeon POD #1 s/p lap ricarda. C/o port site discomfort; voided; tolerating diet; needs to get OOB VSS AF abdomen port sites c/d/i; right lateral port site dressing reinforced; abdomen o /w unremarkable. IMP: Stable post op PLAN: Stable for d/c after ambulates ; for f/u in my office at [address] on 08/09/16; to call [phone] for an appt. May shower and leave dressings in place.
[2016-08-03] MEDS ORDERED: SERTRALINE HCL 50 MG TABLET (FP) PO SCH (10:00)
--- NOTE | 2016-08-03 13:05 | PATH ---
Surgical Pathology Report Patient Name: AAYUSH COLE Med. Rec. #: [id number] /Age/Gender: 1990 (Age: 25) / F Account: [id number] Location: [facility] MED/SURG Taken: 08/02/2016 Received: 08/02/2016 Reported: 08/03/2016 Physicians: Joe Case MD Specimen(s) Received GALLBLADDER Clinical History Cholelithiasis Final Diagnosis GALLBLADDER, CHOLECYSTECTOMY: CHRONIC CHOLECYSTITIS AND CHOLELITHIASIS. Electronically Signed Anton Fernández M.D. Gross Description Received in formalin, labeled "gallbladder" is a 7.5 x 2.3 x 2.0 cm gallbladder with a 0.2 cm in length portion of cystic duct attached. The outer surface is loyd-pink and varies from smooth to shaggy. The lumen contains loyd-yellow bile as well as multiple yellow, irregular to fragmented choleliths ranging from 0.3-1.8 cm in greatest dimension. The mucosa is loyd and velvety. The wall of the gallbladder averages 0.1 cm in thickness. Stove Polisher sections are submitted in one cassette. /08/02/2016 [facility]08/02/2016
--- NOTE | 2016-08-03 13:31 | PN ---
Progress Note, Physician Chief Complaint: s/p lap cholecystectomy post op day one History of Present Illness: under general anesthesia. patient is doing well today - Current Medication List Current Medications: Active Medications Acetaminophen (Tylenol -) 650 mg PO Q4H PRN PRN Reason: FEVER OR PAIN Heparin Sodium (Porcine) (Heparin -) 5,000 unit SQ BID [facility] Last Admin: 08/03/16 09:41 Dose: 5,000 unit Lactated Ringer's (Lactated Ringers Solution) 1,000 mls @ 125 mls/hr IV ASDIR [facility] Last Admin: 08/02/16 16:30 Dose: Not Given Potassium Chloride/Dextrose/Sod Cl (D5-1/2ns+20 Meq Kcl -) 1,000 mls @ 100 mls/ hr IV ASDIR [facility] Last Admin: 08/02/16 16:27 Dose: Not Given Ketorolac Tromethamine (Toradol Injection -) 30 mg IM Q6H PRN Stop: 08/05/16 23:51 Last Admin: 08/03/16 09:41 Dose: 30 mg Oxycodone HCl (Roxicodone -) 5 mg PO Q4H PRN PRN Reason: PAIN Last Admin: 08/02/16 16:32 Dose: 5 mg Sertraline HCl (Zoloft -) 50 mg PO DAILY [facility] Last Admin: 08/03/16 09:41 Dose: 50 mg Trazodone HCl (Desyrel -) 25 mg PO HS [facility] Last Admin: 08/02/16 21:53 Dose: 25 mg - Objective Vital Signs: Vital Signs Temperature 98 F 08/03/16 06:18 Pulse Rate 72 08/03/16 06:18 Respiratory Rate 20 08/03/16 06:18 Blood Pressure 102/64 08/03/16 06:18 O2 Sat by Pulse Oximetry (%) 100 08/02/16 15:00 Constitutional: Yes: No Distress Cardiovascular: Yes: WNL Respiratory: Yes: WNL Gastrointestinal: Yes: WNL Labs: CBC, BMP 08/02/16 06:00 08/02/16 06:00 INR, PTT INR 1.20 (0.82-1.09) H 08/01/16 06:00 Assessment/Plan Tolerating PO, no adverse effects of anesthetic, pain well controlled. Dept of anesthesia will sign off care at this time
[2016-08-03 17:32] VITALS: BP 103/58; PULSE 72; TEMP 98.4
--- NOTE | 2016-08-03 18:40 | DS ---
Physical Examination Vital Signs: Vital Signs Temperature 98.4 F 08/03/16 17:31 Pulse Rate 72 08/03/16 17:31 Respiratory Rate 18 08/03/16 17:31 Blood Pressure 103/58 08/03/16 17:31 O2 Sat by Pulse Oximetry (%) 100 08/03/16 09:00 Findings/Remarks: TOLERATING PO DIET Constitutional: Yes: No Distress Eyes: Yes: WNL HENT: Yes: WNL Neck: Yes: WNL Cardiovascular: Yes: WNL Respiratory: Yes: WNL Gastrointestinal: Yes: Normal Bowel Sounds, Soft, Tenderness (POST-OP TENDERNESS , NO REBOUND, SOFT) Renal/: Yes: WNL Musculoskeletal: Yes: WNL Extremities: Yes: WNL Edema: No Peripheral Pulses WNL: Yes Integumentary: Yes: WNL Wound/Incision: Yes: Clean/Dry, Dressing Dry and Intact Neurological: Yes: WNL ...Motor Strength: WNL Psychiatric: Yes: WNL Labs: CBC, BMP 08/02/16 06:00 08/02/16 06:00 Discharge Summary Reason For Visit: CHOLEITHIASIS Current Active Problems Cholelithiasis (Acute) Chronic abdominal pain (Acute) Chronic cholecystitis with calculus (Acute) Hirschsprung's disease (Acute) Procedures: Principal: [facility] Hospital Course: ADMITTED ACUTE CHOL, LP CHOL PERFORMED TOLERAED WELL, DC HOME, F/U DR GAY IN 4-5 DAYS LABS, AND SURGERY DR ROBERTS Condition: Stable - Instructions Diet, Activity, Other Instructions: Dr Otoniel Roberts Instructions Dear AAYUSH COLE, Post Operative Instructions Physical activity Resume your normal everyday activity as tolerated no heavy lifting or exercise until seen by your surgeon. You may walk unlimited jayden of and climb stairs. You may resume driving the car when you feel safe and comfortable behind the wheel. Wound care If you have a bandage, leave it on, and keep dry for 48-72 hours. After that time discard the outer bandage. If there are tapes on the skin under the outer bandage, leave them in place. They will peel off in the next 7 to 10 days. Do Not Peel them off. You may shower the day after surgery. If there are tapes present on the skin, you may shower over them. Diet Eat healthy, low-fat foods. Drink 6 to 8 glasses of liquid each day. This will assist in keeping your bowels are regular. Pain management You may take Tylenol or acetaminophen or Ibuprofen (for example, Motrin, Advil etc.) Any pain prescription medication ordered should be taken as prescribed for moderate to severe pain. Call Dr. Roberts for any of the following: Severe pain not relieved by medication Fever of 101 or higher Excessive bleeding or drainage on dressing Call the office at [phone] for an appointment in seven days. Referrals: Joe Roberts MD [Staff Physician] - Dejuan Gay [Primary Care Provider] - Disposition: HOME - Home Medications Comprehensive Discharge Medication List: Ambulatory Orders Oxycodone HCl/Acetaminophen [Percocet 5-325 mg Tablet] 1 tab PO PRN PRN Sertraline HCl 50 mg PO DAILY 02/05/16 Trazodone HCl [Desyrel -] 25 mg PO HS 02/05/16 Polyethylene Glycol 3350 [Miralax 119 gm Btl -] 17 gm PO DAILY #[address] GAY IN 5 DAYS
== END 2016-08-03 19:35 | disposition home or self-care (01) | DRG 263 ==
LOC: JER 18:11 → JERBED 19:25 → J7W 23:25
PROVIDERS: ADMIT Family Medicine; ATTEND Family Medicine
PROC: 0FT44ZZ Resection of Gallbladder, Percutaneous Endoscopic Approach (ICD-10-PCS; principal; 2016-08-02 13:00)
DX: K80.20 Calculus of gallbladder without cholecystitis without obstruction (principal); F90.8 Attention-deficit hyperactivity disorder, other type; F41.0 Panic disorder [episodic paroxysmal anxiety]; F20.89 Other schizophrenia; Q43.1 Hirschsprung's disease; E73.8 Other lactose intolerance; G89.29 Other chronic pain
CPT/HCPCS: 36415; 80053; 81003; 83690; 84703; 85025; 85027; 85610; 85730; 86850; 86900; 86901; 88304-TC; 93005; 93010; 94010; 94760; 99282-25; J1644; J7030

== ENCOUNTER 2016-11-03 20:06 | Emergency (ER) | payer OTHER ==
[2016-11-03 20:35] VITALS: TEMP 97.8; BMI 19.8
--- NOTE | 2016-11-03 21:36 | PDOC ---
History of Present Illness - General Chief Complaint: Pain Stated Complaint: ABDOMINAL PAIN Time Seen by Provider: 11/03/16 20:52 History Source: Patient, Family Exam Limitations: No Limitations - History of Present Illness Travel History: No Initial Comments: 11/03/16 22:28 25-year-old female with a history of left. Cholecystectomy presents to the emergency department complaining of epigastric and right upper quadrant abdominal discomfort 3 days. Pain is described as 5/10 sharp nonradiating intermittent discomfort. The pain is exacerbated on touch and movement and alleviated minimally at rest. She denies nausea/vomiting, fever/chills, chest pain, shortness of breath, flank pains, urinary symptoms: Frequency/urgency/ hesitancy, hematuria. Timing/Duration: reports: intermittent Quality: reports: mild Abdominal Pain Onset Location: reports: RUQ, epigastric Pain Radiation: reports: no radiation Past History - Past Medical History Allergies/Adverse Reactions: Allergies Allergy/AdvReac Type Severity Reaction Status Date / Time morphine Allergy Verified 11/03/16 20:35 IRISH YOGURT Allergy Hives Uncoded 11/03/16 20:35 Home Medications: Ambulatory Orders Oxycodone HCl/Acetaminophen [Percocet 5-325 mg Tablet] 1 tab PO PRN PRN Sertraline HCl 50 mg PO DAILY 02/05/16 Trazodone HCl [Desyrel -] 25 mg PO HS 02/05/16 Polyethylene Glycol 3350 [Miralax 119 gm Btl -] 17 gm PO DAILY #1 bottle Asthma: Yes Psychiatric Problems: Yes (ANXEITY,PANIC, ADHD,SCHIZOPH) - Surgical History Abdominal Surgery: Yes (COLOSTOMY NAD ILEOSTOMY BOTH REVERSED) Cholecystectomy: Yes - Immunization History Immunization Up to Date: Yes - Psycho/Social/Smoking Cessation Hx Anxiety: No Suicidal Ideation: No Smoking History: Never smoked Have you smoked in the past 12 months: No Number of Cigarettes Smoked Daily: 0 Information on smoking cessation initiated: No Hx Alcohol Use: No Drug/Substance Use Hx: No Substance Use Type: None Hx Substance Use Treatment: No Review of Systems - Review of Systems Able to Perform ROS?: Yes Comments:: 11/03/16 22:29 CONSTITUTIONAL: Absent: fever, chills, diaphoresis, generalized weakness, malaise, loss of appetite HEENT: Absent: rhinorrhea, nasal congestion, throat pain, throat swelling, difficulty swallowing, mouth swelling, ear pain, eye pain, visual Changes CARDIOVASCULAR: Absent: chest pain, loss of consciousness, palpitations, irregular heart rate, peripheral edema RESPIRATORY: Absent: cough, shortness of breath, dyspnea with exertion, orthopnea, wheezing, stridor, hemoptysis GASTROINTESTINAL: +epigastric/RUQ pain Absent: abdominal distension, nausea, vomiting, diarrhea, constipation, melena, hematochezia GENITOURINARY: Absent: dysuria, frequency, urgency, hesitancy, hematuria, flank pain, genital pain MUSCULOSKELETAL: Absent: myalgia, arthralgia, joint swelling SKIN: Absent: rash, itching, pallor HEMATOLOGIC/IMMUNOLOGIC: Absent: easy bleeding, easy bruising, lymphadenopathy, frequent infections ENDOCRINE: Absent: unexplained weight gain, unexplained weight loss, heat intolerance, cold intolerance NEUROLOGIC: Absent: headache, focal weakness or paresthesias, dizziness, unsteady gait, seizure, mental status changes, bladder or bowel incontinence PSYCHIATRIC: Absent: anxiety, depression, suicidal or homicidal ideation, hallucinations. Is the patient limited Latvian proficient: No *Physical Exam - Vital Signs Last Vital Signs Temp Pulse Resp BP Pulse Ox 97.8 F 96 H 18 106/67 96 11/03/16 20:30 11/03/16 20:30 11/03/16 20:30 11/03/16 20:30 11/03/16 20:30 - Physical Exam Comments: 11/03/16 22:29 GENERAL: Well developed, well nourished. Awake and alert. No acute distress. HEENT: Normocephalic, atraumatic. PERRLA, EOMI. No conjunctival pallor. Sclera are non- icteric. Moist mucous membranes. Oropharynx is clear. NECK: Supple. Full ROM. No JVD. Carotid pulses 2+ and symmetric, without bruits. No thyromegaly. No lymphadenopathy. CARDIOVASCULAR: Regular rate and rhythm. No murmurs, rubs, or gallops. Distal pulses are 2+ and symmetric. PULMONARY: No evidence of respiratory distress. Lungs clear to auscultation bilaterally. No wheezing, rales or rhonchi. ABDOMINAL: Soft. Non-tender. Non-distended. No rebound or guarding. No organomegaly. Normoactive bowel sounds. MUSCULOSKELETAL Normal range of motion at all joints. No bony deformities or tenderness. No CVA tenderness. EXTREMITIES: No cyanosis. No clubbing. No edema. No calf tenderness. SKIN: Warm and dry. Normal capillary refill. No rashes. No jaundice. NEUROLOGICAL: Alert, awake, appropriate. Cranial nerves 2-12 intact. No deficits to light touch and temperature in face, upper extremities and lower extremities. No motor deficits in the in face, upper extremities and lower extremities. Normoreflexic in the upper and lower extremities. Normal speech. Toes are down- going bilaterally. Gait is normal without ataxia. PSYCHIATRIC: Cooperative. Good eye contact. Appropriate mood and affect. ED Treatment Course - LABORATORY CBC & Chemistry Diagram: 11/03/16 22:05 11/03/16 22:28 Progress Note - Progress Note Progress Note: 0051hrs: Spoke to Dr. Katherin Vazquez/ Physican who admitted pt last Sunday for cholecystitis. He requests the patient see him at 9 AM on Sunday at his office. I spoke to the patient in depth, who agrees with the plan. The patient was advised to return back to the emergency department for any concerns, severe/ persistent or worsening symptoms. *DC/Admit/Observation/Transfer Diagnosis at time of Disposition: Abdominal pain Qualifiers: Abdominal location: right upper quadrant Qualified Code(s): R10.11 - Right upper quadrant pain - Discharge Dispostion Disposition: HOME Condition at time of disposition: Stable Admit: No - Referrals Referrals: Dejuan Gay [Primary Care Provider] - Meryl Vazquez MD [Staff Physician] - - Patient Instructions Printed Discharge Instructions: DI for Abdominal Pain-Adult Additional Instructions: As per Dr. Vazquez, you are to see him at 9 am in his office Sunday morning Return to the ER for severe/persistent/worsening symptoms
[2016-11-03 21:49] LABS: URINE APPEARANCE CLEAR; URINE BILIRUBIN NEGATIVE (NEGATIVE); URINE BLOOD NEGATIVE (NEGATIVE); URINE COLOR YELLOW; URINE GLUCOSE (UA) NEGATIVE (NEGATIVE); URINE KETONE TRACE (NEGATIVE); URINE LEUK ESTERASE NEGATIVE (NEGATIVE); URINE NITRITE NEGATIVE (NEGATIVE); URINE PROTEIN NEGATIVE (NEGATIVE); URINE UROBILINOGEN 2.0 E.U/dl E.U./dl (0.2-1.0)
[2016-11-03 22:19] LABS: BASOPHIL 0.4 % (0-2.0); EOSINOPHIL 0.5 % (0-4.5); MCH 31.1 pg (25.7-33.7); MCHC 33.8 g/dl (32.0-36.0); MEAN CELL VOLUME 92.2 fl (80-96); MEAN PLT VOLUME 8.8 fl (7.5-11.1); NEUTROPHILS 71.8 % (42.8-82.8); PLATELET COUNT 220 K/MM3 (134-434); RDW 12.1 % (11.6-15.6); WHITE BLOOD COUNT 8.2 K/mm3 (4.0-10.0)
[2016-11-03 23:16] LABS: ALBUMIN 3.9 g/dl (3.4-5.0); ALK PHOS 103 U/L (45-117); ANION GAP 11 (8-16); BILIRUBIN,TOTAL 1.2 mg/dL (0.2-1.0); CALCIUM 9.1 mg/dL (8.5-10.1); CO2 27 mmol/L (21-32); COCKROFT - GAULT 98.8295; CREATININE 0.6 mg/dL (0.55-1.02); GLUCOSE,RANDOM 88 mg/dL (74-106); SGOT/AST 198 U/L (15-37); SGPT/ALT 114 U/L (12-78); TOT PROT 7.6 g/dl (6.4-8.2)
[2016-11-04 00:08] VITALS: BP 98/67; PULSE 71
== END 2016-11-04 01:08 | disposition home or self-care (01) ==
LOC: JER 20:06
DX: R10.11 Right upper quadrant pain (principal)
CPT/HCPCS: 36415; 76705-TC; 80053; 81003; 84703; 85025; 99282-25

== ENCOUNTER 2017-01-07 09:42 | Emergency (ER) | payer OTHER ==
--- NOTE | 2017-01-07 09:55 | PDOC ---
History of Present Illness - General Stated Complaint: ABDOMINAL PAIN Time Seen by Provider: 01/07/17 09:45 History Source: Patient - History of Present Illness Timing/Duration: reports: constant, getting worse Quality: reports: severe Abdominal Pain Onset Location: reports: other Pain Radiation: reports: no radiation Past History - Past Medical History Allergies/Adverse Reactions: Allergies Allergy/AdvReac Type Severity Reaction Status Date / Time morphine Allergy Verified 01/07/17 10:10 PALAUAN YOGURT Allergy Hives Uncoded 01/07/17 10:10 Home Medications: Ambulatory Orders Oxycodone HCl/Acetaminophen [Percocet 5-325 mg Tablet] 1 tab PO PRN PRN Sertraline HCl 50 mg PO DAILY 02/05/16 Trazodone HCl [Desyrel -] 25 mg PO HS 02/05/16 Polyethylene Glycol 3350 [Miralax 119 gm Btl -] 17 gm PO DAILY #1 bottle Nitrofurantoin Monohyd/M-Cryst [Macrobid -] 100 mg PO BID #14 capsule 01/07/17 Phenazopyridine HCl [Pyridium] 200 mg PO TID #6 tablet 01/07/17 Asthma: Yes Psychiatric Problems: Yes (ANXEITY,PANIC, ADHD,SCHIZOPH) - Surgical History Abdominal Surgery: Yes (COLOSTOMY NAD ILEOSTOMY BOTH REVERSED) Cholecystectomy: Yes - Immunization History Immunization Up to Date: Yes - Psycho/Social/Smoking Cessation Hx Anxiety: No Suicidal Ideation: No Smoking History: Never smoked Have you smoked in the past 12 months: No Number of Cigarettes Smoked Daily: 0 Hx Alcohol Use: No Drug/Substance Use Hx: No Substance Use Type: None Hx Substance Use Treatment: No Review of Systems - Review of Systems Constitutional: No: Chills, Fever ABD/GI: No: Constipated, Diarrhea, Nausea, Vomiting : Yes: Dysuria. 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 negative: Distended, Guarding, Rebound Musculoskeletal: negative: CVA Tenderness Integumentary: positive: Dry, Warm Neurologic: positive: Fully Oriented, Alert, Normal Mood/Affect ED Treatment Course - LABORATORY CBC & Chemistry Diagram: 01/07/17 10:00 01/07/17 10:00 Medical Decision Making - Medical Decision Making 01/07/17 09:53 26-year-old female, history of Hirschsprung's disease, status post colostomy with reversal, status post ileostomy with reversal, status post cholecystectomy approximately 5 months ago, here at [facility], presents with abdominal pain. Patient reports severe mid lower abdominal pain 3 days with possible dysuria. Denies hematuria, urinary frequency, flank pain, nausea, vomiting, fever or chills. No acute change in bowel movements. No vaginal discharge. Not sexually active per pt. See exam Suprapubic pain w/ dysuria M/l UTI, no e/o pyelo at this time -ua/cx -labs -XR given above hx 01/07/17 09:58 01/07/17 10:05 01/07/17 12:06 Trace intact blood and 2+ leuk esterase on UA, rest of labs and x-ray unremarkable. Ucx sent. First dose of antibiotics and Pyridium given in ED, will discharge with prescription for same (no old sensitivities on record here) . Strict return precautions given. Otherwise, patient to follow up with primary care physician *DC/Admit/Observation/Transfer Diagnosis at time of Disposition: UTI (urinary tract infection) Qualifiers: Urinary tract infection type: acute cystitis Hematuria presence: without hematuria Qualified Code(s): N30.00 - Acute cystitis without hematuria - Discharge Dispostion Disposition: HOME Condition at time of disposition: Improved - Prescriptions Prescriptions: Nitrofurantoin Monohyd/M-Cryst [Macrobid -] 100 mg PO BID #14 capsule Phenazopyridine HCl [Pyridium] 200 mg PO TID #6 tablet - Patient Instructions Printed Discharge Instructions: DI for Urinary Tract Infection (UTI) Additional Instructions: Take medications as prescribed and return for worsening of symptoms. Otherwise follow-up with your primary care physician
[2017-01-07] MEDS ORDERED: KETOROLAC TROMETHAMINE 30 MG/1 ML VIAL IVPUSH ONE (10:04)
[2017-01-07 10:11] VITALS: BP 104/72; PULSE 74; TEMP 98.4; BMI 16.5
[2017-01-07] MEDS ORDERED: KETOROLAC TROMETHAMINE 30 MG/1 ML VIAL ONE (10:13)
--- NOTE | 2017-01-07 10:28 | PDOC ---
*Physical Exam - Vital Signs Last Vital Signs Temp Pulse Resp BP Pulse Ox 98.4 F 74 16 104/72 97 01/07/17 09:45 01/07/17 09:45 01/07/17 09:45 01/07/17 09:45 01/07/17 09:45 ED Treatment Course - LABORATORY CBC & Chemistry Diagram: 01/07/17 10:00 01/07/17 10:00 - ADDITIONAL ORDERS Additional order review: Laboratory Results 01/07/17 10:00 Urine HCG, Qual Negative - Medications Given in the ED: ED Medications Discontinued Medications Generic Name Dose Route Start Last Admin Trade Name Freq PRN Reason Stop Dose Admin Ketorolac Tromethamine 30 mg 01/07/17 10:04 01/07/17 10:10 Toradol Injection - IVPUSH 01/07/17 10:05 30 mg ONCE ONE Administration Medical Decision Making - Medical Decision Making 01/07/17 10:27 Pt seen by the Advanced Practice Provider under my direct supervision Ancillary studies reviewed I agree with plan as outlined by the Advanced Practice Provider GRECIA Quiñonez *DC/Admit/Observation/Transfer Diagnosis at time of Disposition: UTI (urinary tract infection) - Discharge Dispostion Disposition: HOME Condition at time of disposition: Improved - Prescriptions Prescriptions: Nitrofurantoin Monohyd/M-Cryst [Macrobid -] 100 mg PO BID #14 capsule Phenazopyridine HCl [Pyridium] 200 mg PO TID #6 tablet - Patient Instructions Printed Discharge Instructions: DI for Urinary Tract Infection (UTI) Additional Instructions: Take medications as prescribed and return for worsening of symptoms. Otherwise follow-up with your primary care physician
[2017-01-07 10:33] LABS: ALBUMIN 3.9 g/dl (3.4-5.0); ANION GAP 7 (8-16); CALCIUM 9.6 mg/dL (8.5-10.1); CO2 28 mmol/L (21-32); CREATININE 0.6 mg/dL (0.55-1.02); GLUCOSE,RANDOM 82 mg/dL (74-106); SGPT/ALT 18 U/L (12-78); TOT PROT 8.1 g/dl (6.4-8.2)
[2017-01-07 10:37] LABS: ALK PHOS 99 U/L (45-117); BILIRUBIN,TOTAL 0.9 mg/dL (0.2-1.0)
[2017-01-07 10:38] LABS: SGOT/AST 17 U/L (15-37)
[2017-01-07 10:45] LABS: BASOPHIL 0.7 % (0-2.0); EOSINOPHIL 0.7 % (0-4.5); MCH 31.5 pg (25.7-33.7); MCHC 33.9 g/dl (32.0-36.0); MEAN CELL VOLUME 92.9 fl (80-96); MEAN PLT VOLUME 8.9 fl (7.5-11.1); NEUTROPHILS 67.8 % (42.8-82.8); PLATELET COUNT 224 K/MM3 (134-434); RDW 12.3 % (11.6-15.6); WHITE BLOOD COUNT 6.2 K/mm3 (4.0-10.0)
[2017-01-07 11:39] LABS: URINE APPEARANCE CLEAR; URINE BILIRUBIN NEGATIVE (NEGATIVE); URINE BLOOD TRACE-INTA (NEGATIVE); URINE COLOR LT. YELLOW; URINE GLUCOSE (UA) NEGATIVE (NEGATIVE); URINE KETONE NEGATIVE (NEGATIVE); URINE NITRITE NEGATIVE (NEGATIVE); URINE PROTEIN NEGATIVE (NEGATIVE); URINE UROBILINOGEN 0.2 mg/dL (0.2-1.0)
[2017-01-07 11:43] LABS: URINE LEUK ESTERASE 2+ (NEGATIVE)
[2017-01-07] MEDS ORDERED: PHENAZOPYRIDINE HCL 100 MG TABLET (FP) PO ONE (12:00)
[2017-01-07] MEDS ORDERED: NITROFURANTOIN MACROCRYSTAL 50 MG CAPSULE (FP) PO SCH (12:00)
[2017-01-07 12:18] LABS: URINE MUCUS RARE; URINE WBC 59 /hpf (3-5)
[2017-01-07] MEDS ORDERED: NITROFURANTOIN MACROCRYSTAL 50 MG CAPSULE (FP) ONE (12:21)
[2017-01-07] MEDS ORDERED: PHENAZOPYRIDINE HCL 100 MG TABLET (FP) ONE (12:22)
== END 2017-01-07 12:45 | disposition home or self-care (01) ==
LOC: JER 09:42
PROC: 3E0333Z Introduction of Anti-inflammatory into Peripheral Vein, Percutaneous Approach (ICD-10-PCS; principal; 2017-01-07)
DX: N30.00 Acute cystitis without hematuria (principal); Q43.1 Hirschsprung's disease; J45.909 Unspecified asthma, uncomplicated; F41.9 Anxiety disorder, unspecified
CPT/HCPCS: 36415; 74000-TC; 80053; 81003; 81015; 83690; 84703; 85025; 86850; 86900; 86901; 99282-25

== ENCOUNTER 2017-01-18 23:37 | Emergency (ER) | payer OTHER ==
[2017-01-19 00:08] VITALS: TEMP 97.8; BMI 20.6
[2017-01-19] MEDS ORDERED: PANTOPRAZOLE SODIUM 40 MG in SODIUM CHLORIDE 100 ML IVPB ONE (01:27)
[2017-01-19] MEDS ORDERED: SODIUM CHLORIDE 1,000 ML IV STA (01:27)
[2017-01-19] MEDS ORDERED: PANTOPRAZOLE SODIUM 100 ML IVPB ONE (01:49)
[2017-01-19 01:53] LABS: BASOPHIL 0.4 % (0-2.0); EOSINOPHIL 0.3 % (0-4.5); MCH 32.4 pg (25.7-33.7); MCHC 34.3 g/dl (32.0-36.0); MEAN CELL VOLUME 94.6 fl (80-96); MEAN PLT VOLUME 8.5 fl (7.5-11.1); NEUTROPHILS 80.2 % (42.8-82.8); PLATELET COUNT 232 K/MM3 (134-434); RDW 12.7 % (11.6-15.6); WHITE BLOOD COUNT 8.2 K/mm3 (4.0-10.0)
[2017-01-19 01:55] LABS: URINE APPEARANCE CLEAR; URINE BILIRUBIN NEGATIVE (NEGATIVE); URINE BLOOD NEGATIVE (NEGATIVE); URINE COLOR LTYELLOW; URINE GLUCOSE (UA) NEGATIVE (NEGATIVE); URINE KETONE NEGATIVE (NEGATIVE); URINE LEUK ESTERASE NEGATIVE (NEGATIVE); URINE NITRITE NEGATIVE (NEGATIVE); URINE PROTEIN NEGATIVE (NEGATIVE)
--- NOTE | 2017-01-19 02:10 | PDOC ---
*Physical Exam - Vital Signs Last Vital Signs Temp Pulse Resp BP Pulse Ox 97.8 F 102 H 20 101/69 98 01/18/17 23:51 01/18/17 23:51 01/18/17 23:51 01/18/17 23:51 01/18/17 23:51 ED Treatment Course - LABORATORY CBC & Chemistry Diagram: 01/19/17 01:43 01/19/17 01:43 - ADDITIONAL ORDERS Additional order review: Laboratory Results 01/19/17 01:43 Urine Color Ltyellow Urine Appearance Clear Urine pH 5.0 Urine Protein Negative Urine Glucose (UA) Negative Urine Ketones Negative Urine Blood Negative Urine Nitrite Negative Urine Bilirubin Negative Urine Urobilinogen 2.0 H Ur Leukocyte Esterase Negative Urine HCG, Qual Negative 01/19/17 01:43 RBC 3.62 MCV 94.6 MCHC 34.3 RDW 12.7 MPV 8.5 Neutrophils % 80.2 Lymphocytes % 12.5 D Monocytes % 6.6 Eosinophils % 0.3 Basophils % 0.4 - Medications Given in the ED: ED Medications Discontinued Medications Generic Name Dose Route Start Last Admin Trade Name Freq PRN Reason Stop Dose Admin Pantoprazole Sodium 40 mg/ 100 mls @ 200 mls/hr 01/19/17 01:27 01/19/17 01:49 Sodium Chloride IVPB 01/19/17 01:56 200 mls/hr ONCE ONE Administration Medical Decision Making - Medical Decision Making 01/19/17 02:10 agree with care from LIAT Guajardo
[2017-01-19 02:18] LABS: ALK PHOS 114 U/L (45-117); AMYLASE 55 U/L (25-115); ANION GAP 9 (8-16); BILIRUBIN,TOTAL 0.9 mg/dL (0.2-1.0); CO2 30 mmol/L (21-32); CREATININE 0.6 mg/dL (0.55-1.02); GLUCOSE,RANDOM 95 mg/dL (74-106); SGOT/AST 218 U/L (15-37); SGPT/ALT 142 U/L (12-78); TOT PROT 7.6 g/dl (6.4-8.2)
[2017-01-19 04:35] LABS: URINE MARIJUANA THC NEGATIVE ng/ml (CUTOFF=50)
--- NOTE | 2017-01-19 04:49 | PDOC ---
*Physical Exam - Vital Signs Last Vital Signs Temp Pulse Resp BP Pulse Ox 97.8 F 102 H 20 101/69 98 01/18/17 23:51 01/18/17 23:51 01/18/17 23:51 01/18/17 23:51 01/18/17 23:51 - Physical Exam Comments: 01/19/17 04:49 26-year-old female with no medical history presents to the emergency department complaining of left upper abdominal discomfort. Pain is described as 7/10 dull nonradiating intermittent discomfort. There are no alleviating or exacerbating factors. Patient took Tylenol with minimal relief. Patient denies any fever, chills, nausea/vomiting, chest pain, shortness of breath, flank pains, urinary symptoms: Frequency/urgency/hesitancy, hematuria. CONSTITUTIONAL: Absent: fever, chills, diaphoresis, generalized weakness, malaise, loss of appetite HEENT: Absent: rhinorrhea, nasal congestion, throat pain, throat swelling, difficulty swallowing, mouth swelling, ear pain, eye pain, visual Changes CARDIOVASCULAR: Absent: chest pain, loss of consciousness, palpitations, irregular heart rate, peripheral edema RESPIRATORY: Absent: cough, shortness of breath, dyspnea with exertion, orthopnea, wheezing, stridor, hemoptysis GASTROINTESTINAL: LUQ pain Absent: abdominal distension, nausea, vomiting, diarrhea, constipation, melena, hematochezia GENITOURINARY: Absent: dysuria, frequency, urgency, hesitancy, hematuria, flank pain, genital pain MUSCULOSKELETAL: Absent: myalgia, arthralgia, joint swelling SKIN: Absent: rash, itching, pallor HEMATOLOGIC/IMMUNOLOGIC: Absent: easy bleeding, easy bruising, lymphadenopathy, frequent infections ENDOCRINE: Absent: unexplained weight gain, unexplained weight loss, heat intolerance, cold intolerance NEUROLOGIC: Absent: headache, focal weakness or paresthesias, dizziness, unsteady gait, seizure, mental status changes, bladder or bowel incontinence PSYCHIATRIC: Absent: anxiety, depression, suicidal or homicidal ideation, hallucinations. GENERAL: Well developed, well nourished. Awake and alert. No acute distress. HEENT: Normocephalic, atraumatic. PERRLA, EOMI. No conjunctival pallor. Sclera are non- icteric. Moist mucous membranes. Oropharynx is clear. NECK: Supple. Full ROM. No JVD. Carotid pulses 2+ and symmetric, without bruits. No thyromegaly. No lymphadenopathy. CARDIOVASCULAR: Regular rate and rhythm. No murmurs, rubs, or gallops. Distal pulses are 2+ and symmetric. PULMONARY: No evidence of respiratory distress. Lungs clear to auscultation bilaterally. No wheezing, rales or rhonchi. ABDOMINAL: Soft. Non-tender. Non-distended. No rebound or guarding. No organomegaly. Normoactive bowel sounds. MUSCULOSKELETAL Normal range of motion at all joints. No bony deformities or tenderness. No CVA tenderness. EXTREMITIES: No cyanosis. No clubbing. No edema. No calf tenderness. SKIN: Warm and dry. Normal capillary refill. No rashes. No jaundice. NEUROLOGICAL: Alert, awake, appropriate. Cranial nerves 2-12 intact. No deficits to light touch and temperature in face, upper extremities and lower extremities. No motor deficits in the in face, upper extremities and lower extremities. Normoreflexic in the upper and lower extremities. Normal speech. Toes are down- going bilaterally. Gait is normal without ataxia. PSYCHIATRIC: Cooperative. Good eye contact. Appropriate mood and affect. ED Treatment Course - LABORATORY CBC & Chemistry Diagram: 01/19/17 01:43 01/19/17 01:43 - ADDITIONAL ORDERS Additional order review: Laboratory Results 01/19/17 01/19/17 01/19/17 03:34 01:43 01:43 Sodium 139 Potassium 4.0 Chloride 100 Carbon Dioxide 30 Anion Gap 9 BUN 7 D Creatinine 0.6 Creat Clearance w eGFR > 60 Random Glucose 95 Calcium 9.0 Total Bilirubin 0.9 AST 218 H D ALT 142 H D Alkaline Phosphatase 114 Total Protein 7.6 Albumin 4.0 Total Amylase 55 Lipase 69 L Urine Color Ltyellow Urine Appearance Clear Urine pH 5.0 Urine Protein Negative Urine Glucose (UA) Negative Urine Ketones Negative Urine Blood Negative Urine Nitrite Negative Urine Bilirubin Negative Urine Urobilinogen 2.0 H Ur Leukocyte Esterase Negative Urine HCG, Qual Negative Opiates Screen Negative Methadone Screen Negative Barbiturate Screen Negative Phencyclidine Screen Negative Ur Amphetamines Screen Negative MDMA (Ecstasy) Screen Negative Benzodiazepines Screen Negative Cocaine Screen Negative U Marijuana (THC) Screen Negative 01/19/17 01:43 RBC 3.62 MCV 94.6 MCHC 34.3 RDW 12.7 MPV 8.5 Neutrophils % 80.2 Lymphocytes % 12.5 D Monocytes % 6.6 Eosinophils % 0.3 Basophils % 0.4 - RADIOLOGY Radiograph Interpretation: 01/19/17 04:48 CAT scan of abdomen and pelvis with by mouth/IV contrast Lung bases are clear area visualized cardiac chambers are normal in size and configuration. Status post cholecystectomy no significant biliary duct dilatation is focal fatty infiltration of the liver To the falciform ligament. Normal pancreas, spleen, adrenal glands and kidneys. The stomach and abdominal small and large bowels are normal, though there is mild to large amount of diffuse solid stool. - Medications Given in the ED: ED Medications Discontinued Medications Generic Name Dose Route Start Last Admin Trade Name Freq PRN Reason Stop Dose Admin Pantoprazole Sodium 40 mg/ 100 mls @ 200 mls/hr 01/19/17 01:27 01/19/17 01:49 Sodium Chloride IVPB 01/19/17 01:56 200 mls/hr ONCE ONE Administration Sodium Chloride 1,000 mls @ 1,000 mls/hr 01/19/17 01:27 01/19/17 01:43 Normal Saline - IV 01/19/17 02:26 1,000 mls/hr ASDIR STA Administration *DC/Admit/Observation/Transfer Diagnosis at time of Disposition: Constipation Qualifiers: Constipation type: unspecified constipation type Qualified Code(s): K59.00 - Constipation, unspecified - Discharge Dispostion Disposition: HOME Condition at time of disposition: Stable Admit: No - Referrals Referrals: Meryl Vazquez MD [Primary Care Provider] - Chilango Nicholson MD [Staff Physician] - - Patient Instructions Printed Discharge Instructions: DI for Constipation Additional Instructions: Increase fluid Follow up with the open hearth furnace operator helper/ Dr. Nicholson Return to the ER for severe/persistent/worsening symptoms
[2017-01-19 05:04] VITALS: BP 102/59; PULSE 74
== END 2017-01-19 05:04 | disposition home or self-care (01) ==
LOC: JER 23:37
PROC: 3E033GC Introduction of Other Therapeutic Substance into Peripheral Vein, Percutaneous Approach (ICD-10-PCS; principal; 2017-01-18)
DX: K59.00 Constipation, unspecified (principal)
CPT/HCPCS: 36415; 74177-TC; 80053; 80307; 81003; 82150; 83690; 84703; 85025; 99284-25

== ENCOUNTER 2017-02-11 15:50 | Emergency (ER) | payer OTHER ==
[2017-02-11 15:56] VITALS: BMI 17.2
[2017-02-11] MEDS ORDERED: SODIUM CHLORIDE 1,000 ML IV STA (16:50)
[2017-02-11] MEDS ORDERED: ONDANSETRON 4 MG/2 ML VIAL IVPB ONE (16:50)
--- NOTE | 2017-02-11 16:50 | PDOC ---
History of Present Illness - General History Source: Patient Exam Limitations: No Limitations - History of Present Illness Initial Comments: 02/11/17 16:51 The patient is a 26 year old female with a significant past medical history of schizophrenia, anxiety, Hirschsprung disease s/p colostomy and ileostomy reversal (18 years ago), who presents to the ED with complaints of epigastric pain and nausea since earlier today. The patient reports a sudden onset of nonradiating mid epigastric pain. She states her epigastric pain is worsened with movement and upon deep inspiration. She states she was bent over in pain and couldnt eat throughout the day. Patient states she visited her GI 2 weeks ago and got an endoscopy done and is awaiting her results. Denies vomiting or diarrhea. Denies fever or chills. Denies chest pain or shortness of breath. Denies dysuria or changes in urinary output. Denies any other symptoms. Surgical hx: Gallbladder removal (2 months ago), colostomy and ileostomy (18 years ago). GI: Dr. Peters PCP: Dr. Vazquez Allergies: Morphine (hives) <Devi Richard - Last Filed: 02/11/17 20:16> <Pippa Love - Last Filed: 02/11/17 21:28> - General Chief Complaint: Pain Stated Complaint: epigastric PAIN Time Seen by Provider: 02/11/17 15:58 Past History <Devi Richard - Last Filed: 02/11/17 20:16> - Past Medical History Anemia: No Asthma: Yes Cancer: No Cardiac Disorders: No CVA: No COPD: No DVT: No Dementia: No Diabetes: No Dialysis: No GI Disorders: Yes (Acid reflux,hirschsprung's disease) Disorders: No HTN: No Hypercholesterolemia: No HIV: No Kidney Stones: No Liver Disease: No Psychiatric Problems: Yes (ANXEITY,PANIC, ADHD,SCHIZOPH) Seizures: No Thyroid Disease: No Lung CA: No - Surgical History Abdominal Surgery: Yes (COLOSTOMY NAD ILEOSTOMY BOTH REVERSED) Appendectomy: No Cardiac Surgery: No Cholecystectomy: Yes Gastric Stapling: No Lung Surgery: No Neurologic Surgery: No - Immunization History Immunization Up to Date: Yes - Psycho/Social/Smoking Cessation Hx Anxiety: Yes Suicidal Ideation: No Smoking History: Never smoked Have you smoked in the past 12 months: No Number of Cigarettes Smoked Daily: 0 Information on smoking cessation initiated: No Hx Alcohol Use: No Drug/Substance Use Hx: No Substance Use Type: None Hx Substance Use Treatment: No <Pippa Love - Last Filed: 02/11/17 21:28> - Past Medical History Allergies/Adverse Reactions: Allergies Allergy/AdvReac Type Severity Reaction Status Date / Time morphine Allergy Verified 02/11/17 15:51 CYMRO YOGURT Allergy Hives Uncoded 02/11/17 15:51 Home Medications: Ambulatory Orders Trazodone HCl [Desyrel -] 10 mg PO HS 02/05/16 Polyethylene Glycol 3350 [Miralax 119 gm Btl -] 17 gm PO DAILY #1 bottle Aripiprazole 2 mg PO DAILY 01/19/17 Clonazepam [KlonoPIN] 0.5 mg PO BID PRN 01/19/17 Omeprazole 40 mg PO DAILY PRN 01/19/17 Review of Systems - Review of Systems Able to Perform ROS?: Yes Comments:: 02/11/17 16:51 CONSTITUTIONAL: No reported: Fever, Chills, Diaphoresis, Generalized Weakness, Malaise, Loss of Appetite HEENT: No reported: Rhinorrhea, Nasal Congestion, Throat Pain, Throat Swelling, Difficulty Swallowing, Mouth Swelling, Ear Pain, Eye Pain, Visual Changes CARDIOVASCULAR: No reported: Chest Pain, Syncope, Palpitations, Irregular Heart Rate, Lightheadedness, Peripheral Edema RESPIRATORY: No reported: Cough, Shortness of Breath, SOB with Exertion, Orthopnea, Wheezing , Stridor, Hemoptysis GASTROINTESTINAL: + epigastric pain, nausea No reported: Abdominal Distension, Vomiting, Diarrhea, Constipation, Melena, Hematochezia GENITOURINARY: No reported: Dysuria, Frequency, Urgency, Hesitancy, Flank Pain, Genital Pain MUSCULOSKELETAL: No reported: Myalgia, Arthralgia, Joint Swelling, Back pain, Neck Pain SKIN: No reported: Rash, Itching, Pallor HEMEATOLOGIC/IMMUNOLOGIC: No reported: Easy Bleeding, Easy Bruising, Lymphadenopathy, Frequent infections ENDOCRINE: No reported: Unexplained Weight Gain, Unexplained Weight Loss, Heat Intolerance , Cold Intolerance NEUROLOGIC: No reported: Headache, Focal Weakness, Paresthesias, Vertigo, Lightheadedness, Unsteady Gait, Seizure, Mental Status Changes, Incontinence PSYCHIATRIC: No reported: Anxiety, Depression All Other Systems: Reviewed and Negative <Devi Richard - Last Filed: 02/11/17 20:16> *Physical Exam - Vital Signs Last Vital Signs Temp Pulse Resp BP Pulse Ox 98.8 F 88 18 100/62 100 02/11/17 15:51 02/11/17 15:51 02/11/17 15:51 02/11/17 15:51 02/11/17 15:51 - Physical Exam Comments: 02/11/17 16:51 GENERAL: Well developed, well nourished. Awake and alert. No acute distress. HEENT: + chronic bilateral peripheral nystagmus, missing left maxillary teeth Normocephalic, atraumatic. PERRLA. No conjunctival pallor. Sclera are non- icteric. Moist mucous membranes. Oropharynx is clear. NECK: Supple. Full ROM. No JVD. Carotid pulses 2+ and symmetric, without bruits. No thyromegaly. No lymphadenopathy. CARDIOVASCULAR: Regular rate and rhythm. No murmurs, rubs, or gallops. Distal pulses are 2+ and symmetric. PULMONARY: No evidence of respiratory distress. Lungs clear to auscultation bilaterally. No wheezing, rales or rhonchi. ABDOMINAL: + epigastric tenderness Soft. Non-distended. No rebound or guarding. No organomegaly. Normoactive bowel sounds. MUSCULOSKELETAL Normal range of motion at all joints. No bony deformities or tenderness. No CVA tenderness. EXTREMITIES: No cyanosis. No clubbing. No edema. No calf tenderness. SKIN: Warm and dry. Normal capillary refill. No rashes. No jaundice. NEUROLOGICAL: Alert, awake, appropriate. Cranial nerves 2-12 intact. No deficits to light touch and temperature in face, upper extremities and lower extremities. No motor deficits in the in face, upper extremities and lower extremities. Normoreflexic in the upper and lower extremities. Normal speech. Toes are down- going bilaterally. Gait is normal without ataxia. PSYCHIATRIC: Cooperative. Good eye contact. Appropriate mood and affect. <Devi Richard - Last Filed: 02/11/17 20:16> - Vital Signs Last Vital Signs Temp Pulse Resp BP Pulse Ox 98.8 F 88 18 100/62 100 02/11/17 15:51 02/11/17 15:51 02/11/17 15:51 02/11/17 15:51 02/11/17 15:51 <Pippa Love - Last Filed: 02/11/17 21:28> ED Treatment Course - LABORATORY CBC & Chemistry Diagram: 02/11/17 16:52 02/11/17 16:52 - RADIOLOGY Radiograph Interpretation: 02/11/17 20:16 EXAM: Ultrasound abdomen right upper quadrant FINDINGS: The gallbladder is surgically absent The common bile duct is mildly prominent measuring 0.71 cm, possibly post cholecystectomy changes. No obstructing stones are seen within the visualized portions of the duct. The liver, pancreas, right kidney and visualized portions of the abdominal aorta and IVC are unremarkable Reported by: Imaging senior interaction designer <Devi Richard - Last Filed: 02/11/17 20:16> - LABORATORY CBC & Chemistry Diagram: 02/11/17 16:52 02/11/17 16:52 <Pippa Love - Last Filed: 02/11/17 21:28> Medical Decision Making - Medical Decision Making 02/11/17 18:[address] Peters at 18:24. <Devi Richard - Last Filed: 02/11/17 20:16> - Medical Decision Making 02/11/17 17:35 26 yo female with a history of GI problems incluing hirshprung's disease resulting in colectomy when she was young. -she's followed by Dr Peters(GI) and about 2 week sago had a camera colonscopy .She's awaiting her results. HPI- persistent epigastric pain and nausea. She had cholecytectomy in July this year after she had a positive HIDA scan -no fever,no diarrhea, no rebound or guarding on exam -she points to her epigastric area and has c/o pain but benign abd exam diff diag - GERD, choledocholethiasis PLAN- pepcid,labs,contact Dr Rascon 02/11/17 18:[address] Peters,request US to eval CBD -reviewing her labs in past 3 months shows her LFTs persistently elevated but trending downward -today's lipase and tbili is normal -cbc wnl 02/11/17 21:26 US there was no evidence of stone in CBD,mildly dilated at 0.71cm,there rest of US is unremarkable -pt to follow up with Dr Peters -pt pain free,no vomiting.discharged home <Pippa Love - Last Filed: 02/11/17 21:28> *DC/Admit/Observation/Transfer - Attestations Scribe Attestion: 02/11/17 16:52 Documentation prepared by Devi Richard, acting as medical administrative technician for Pippa Love MD <Deiv Richard - Last Filed: 02/11/17 20:16> <Pippa Love - Last Filed: 02/11/17 21:28> Diagnosis at time of Disposition: Epigastric abdominal pain - Discharge Dispostion Disposition: HOME Condition at time of disposition: Stable - Referrals Referrals: Meryl Vazquez MD [Primary Care Provider] - Rivera Peters MD [Staff Physician] - - Patient Instructions Printed Discharge Instructions: DI for Epigastric Pain Additional Instructions: Please followup with your repairer engine production, Dr Peters Take your lab results and ultrasound results when you go to the doctor's office Return for any worsening symptoms
[2017-02-11] MEDS ORDERED: FAMOTIDINE 20 MG/50 ML IVPB 50 ML IVPB ONE ×2 (16:51→17:01)
[2017-02-11] MEDS ORDERED: ONDANSETRON 4 MG/2 ML VIAL ONE (17:01)
[2017-02-11 17:11] LABS: BASOPHIL 0.3 % (0-2.0); EOSINOPHIL 0.5 % (0-4.5); MCHC 34.7 g/dl (32.0-36.0); MEAN CELL VOLUME 92.2 fl (80-96); MEAN PLT VOLUME 8.4 fl (7.5-11.1); NEUTROPHILS 68.8 % (42.8-82.8); PLATELET COUNT 231 K/MM3 (134-434); RDW 12.1 % (11.6-15.6); WHITE BLOOD COUNT 5.7 K/mm3 (4.0-10.0)
[2017-02-11] MEDS ORDERED: MAG HYDROX/AL HYDROX/SIMETH 355 ML ORAL.SUSP PO ONE (17:33)
[2017-02-11 17:37] LABS: ALBUMIN 3.9 g/dl (3.4-5.0); ALK PHOS 105 U/L (45-117); ANION GAP 6 (8-16); BILIRUBIN,TOTAL 0.9 mg/dL (0.2-1.0); CALCIUM 9.2 mg/dL (8.5-10.1); CO2 28 mmol/L (21-32); CREATININE 0.6 mg/dL (0.55-1.02); GLUCOSE,RANDOM 82 mg/dL (74-106); SGOT/AST 74 U/L (15-37); SGPT/ALT 79 U/L (12-78); TOT PROT 7.8 g/dl (6.4-8.2)
[2017-02-11] MEDS ORDERED: MAG HYDROX/AL HYDROX/SIMETH 30 ML UNIT-DOSE CUP ONE (18:03)
[2017-02-11 21:09] VITALS: BP 104/65; PULSE 84; TEMP 98.2
--- NOTE | 2017-02-13 21:42 | EKG ---
Test Reason : Blood Pressure : / mmHG Vent. Rate : 087 BPM Atrial Rate : 087 BPM P-R Int : 120 ms QRS Dur : 096 ms QT Int : 376 ms P-R-T Axes : -15 029 056 degrees QTc Int : 452 ms NORMAL SINUS RHYTHM WITH SINUS ARRHYTHMIA INCOMPLETE RIGHT BUNDLE BRANCH BLOCK BORDERLINE ECG WHEN COMPARED WITH ECG OF 01-AUG-2016 15:00, QT HAS LENGTHENED REPEAT EKG IF CLINICALLY INDICATED Confirmed by MIMI EPSTEIN MD ([id number]) on 02/13/2017 9:42:01 PM Referred By: Confirmed By:MIMI EPSTEIN MD
== END 2017-02-11 21:09 | disposition home or self-care (01) ==
LOC: JER 15:50
PROC: 3E0337Z Introduction of Electrolytic and Water Balance Substance into Peripheral Vein, Percutaneous Approach (ICD-10-PCS; principal; 2017-02-11)
PROC: 3E033GC Introduction of Other Therapeutic Substance into Peripheral Vein, Percutaneous Approach (ICD-10-PCS; 2017-02-11)
DX: R10.11 Right upper quadrant pain (principal); F41.8 Other specified anxiety disorders; F20.9 Schizophrenia, unspecified; K21.9 Gastro-esophageal reflux disease without esophagitis; Q43.1 Hirschsprung's disease
CPT/HCPCS: 36415; 76705-TC; 80053; 83690; 84703; 85025; 93005; 93010; 96361; 96365; 96375; 99283-25

== ENCOUNTER 2017-03-18 10:34 | Emergency (ER) | payer OTHER ==
[2017-03-18 10:47] VITALS: TEMP 98; BMI 17.6
--- NOTE | 2017-03-18 10:59 | PDOC ---
History of Present Illness - General History Source: Patient, Family, Old Records Exam Limitations: No Limitations - History of Present Illness Initial Comments: 03/18/17 11:06 The patient is a 26 year old female presenting with her father, with a significant past medical history of asthma, acid reflux, hirschsprung's disease , ADHD, anxiety and schizophrenia, who presents to the emergency department with abdominal pain, nausea and vomit that began today. She describes her abdominal pain as localized in the epigastric region, ranging from mild to moderate, without radiation or modifying factors. She reports that she had 1 vomiting episode that was non bilious and nonbloody. She also reports loss of appetite and chills associated with her chief complaint. The patient denies chest pain, shortness of breath, headache and dizziness. Denies fever, diarrhea and constipation. Denies dysuria, frequency, urgency and hematuria. Allergies: Morphine, armenian yogurt Past surgical history: colostomy and ileostomy (both reversed), cholecystectomy Social history: No alcohol, tobacco or drug use reported PMD: Dr. Meryl Vazquez GI: Dr. Peters <Lexx Disla - Last Filed: 03/18/17 11:38> <Aleyda Caban - Last Filed: 03/18/17 15:23> - General Chief Complaint: Nausea/Vomiting Stated Complaint: VOMITING, LIGHHEADED Time Seen by Provider: 03/18/17 10:58 Past History <Lexx Disla - Last Filed: 03/18/17 11:38> - Past Medical History Anemia: No Asthma: Yes Cancer: No Cardiac Disorders: No CVA: No COPD: No DVT: No Dementia: No Diabetes: No Dialysis: No GI Disorders: Yes (Acid reflux,hirschsprung's disease) Disorders: No HTN: No Hypercholesterolemia: No Kidney Stones: No Liver Disease: No Psychiatric Problems: Yes (ANXEITY,PANIC, ADHD,SCHIZOPH) Seizures: No Thyroid Disease: No Lung CA: No - Surgical History Abdominal Surgery: Yes (COLOSTOMY NAD ILEOSTOMY BOTH REVERSED) Appendectomy: No Cardiac Surgery: No Cholecystectomy: Yes Gastric Stapling: No Lung Surgery: No Neurologic Surgery: No - Immunization History Immunization Up to Date: Yes - Suicide/Smoking/Psychosocial Hx Smoking History: Never smoked Have you smoked in the past 12 months: No Number of Cigarettes Smoked Daily: 0 Hx Alcohol Use: No Drug/Substance Use Hx: No Substance Use Type: None Hx Substance Use Treatment: No <Aleyda Caban - Last Filed: 03/18/17 15:23> - Past Medical History Allergies/Adverse Reactions: Allergies Allergy/AdvReac Type Severity Reaction Status Date / Time morphine Allergy Verified 03/18/17 10:43 FAROESE YOGURT Allergy Hives Uncoded 03/18/17 10:43 Home Medications: Ambulatory Orders Trazodone HCl [Desyrel -] 10 mg PO HS 02/05/16 Aripiprazole 2 mg PO DAILY 01/19/17 Clonazepam [KlonoPIN] 0.5 mg PO BID PRN 01/19/17 Omeprazole 40 mg PO DAILY PRN 01/19/17 Docusate Sodium [Colace -] 100 mg PO DAILY #30 capsule 03/18/17 Review of Systems - Review of Systems Able to Perform ROS?: Yes Comments:: 03/18/17 11:06 GENERAL/CONSTITUTIONAL: (+) Chills, loss of appetite. No fever. No weakness. HEAD, EYES, EARS, NOSE AND THROAT: No change in vision. No ear pain or discharge. No sore throat.- CARDIOVASCULAR: No chest pain or shortness of breath RESPIRATORY: No cough, wheezing, or hemoptysis. GASTROINTESTINAL: (+) Abdominal pain, nausea and vomiting. No diarrhea or constipation. GENITOURINARY: No dysuria, frequency, or change in urination. MUSCULOSKELETAL: No joint or muscle swelling or pain. No neck or back pain. SKIN: No rash NEUROLOGIC: (+) Dizziness. No loss of consciousness, or change in strength/ sensation. ENDOCRINE: No increased thirst. No abnormal weight change HEMATOLOGIC/LYMPHATIC: No anemia, easy bleeding, or history of blood clots. ALLERGIC/IMMUNOLOGIC: No hives or skin allergy. <Lexx Disla - Last Filed: 03/18/17 11:38> *Physical Exam - Vital Signs Last Vital Signs Temp Pulse Resp BP Pulse Ox 98.0 F 107 H 20 122/63 97 03/18/17 10:40 03/18/17 10:40 03/18/17 10:40 03/18/17 10:40 03/18/17 10:40 - Physical Exam Comments: 03/18/17 11:06 GENERAL: Awake, alert, and fully oriented, in no acute distress HEAD: No signs of trauma, normocephalic, atraumatic EYES: PERRLA, EOMI, sclera anicteric, conjunctiva clear ENT: Auricles normal inspection, hearing grossly normal, nares patent, oropharynx clear without exudates. Moist mucosa NECK: Normal ROM, supple, no lymphadenopathy, JVD, or masses LUNGS: No distress, speaks full sentences, clear to auscultation bilaterally HEART: Regular rate and rhythm, normal S1 and S2, no murmurs, rubs or gallops, peripheral pulses normal and equal bilaterally. ABDOMEN: Soft, nontender, normoactive bowel sounds. No guarding, no rebound. No masses EXTREMITIES : Normal inspection, Normal range of motion, no edema. No clubbing or cyanosis. NEUROLOGICAL: Cranial nerves II through XII grossly intact. Normal speech, normal gait, no focal sensorimotor deficits SKIN: Warm, Dry, normal turgor, no rashes or lesions noted. <Lexx Disla - Last Filed: 03/18/17 11:38> - Vital Signs Last Vital Signs Temp Pulse Resp BP Pulse Ox 98.0 F 107 H 20 122/63 97 03/18/17 10:40 03/18/17 10:40 03/18/17 10:40 03/18/17 10:40 03/18/17 10:40 <Aleyda Caban - Last Filed: 03/18/17 15:23> ED Treatment Course - LABORATORY CBC & Chemistry Diagram: 03/18/17 11:59 03/18/17 11:59 <Aleyda Caban - Last Filed: 03/18/17 15:23> Medical Decision Making - Medical Decision Making 03/18/17 15:17 Pt presents to the ED complaining of nausea, vomiting and burning epigastric pain. History of Hirshsprung's disease with multiple abdominal surgeries. Pain is most consistent with gastritis, but she is at high risk for obstruction , so CT abdomen was performed to rule out obstruction and is negative. Will discharge home. <Aleyda Caban - Last Filed: 03/18/17 15:23> *DC/Admit/Observation/Transfer - Attestations Scribe Attestion: 03/18/17 11:06 Documentation prepared by Lexx Disla, acting as medical equipment repair technician for Dr. Dawn. <Lexx iDsla - Last Filed: 03/18/17 11:38> <Aleyda Caban - Last Filed: 03/18/17 15:23> Diagnosis at time of Disposition: Abdominal pain Qualifiers: Abdominal location: generalized Qualified Code(s): R10.84 - Generalized abdominal pain; R10.84 - Generalized abdominal pain - Discharge Dispostion Disposition: HOME Condition at time of disposition: Good - Prescriptions Prescriptions: Docusate Sodium [Colace -] 100 mg PO DAILY #30 capsule - Referrals Referrals: Meryl Vazquez MD [Primary Care Provider] - - Patient Instructions Printed Discharge Instructions: DI for Vomiting -- Adult Additional Instructions: Return to the ED for severe pain, nausea and vomiting, unable to tolerate liquids, pain with fever. Follow up with your doctor within one week.
[2017-03-18] MEDS ORDERED: ONDANSETRON 4 MG/2 ML VIAL IVPUSH ONE (11:39)
[2017-03-18] MEDS ORDERED: ONDANSETRON 4 MG/2 ML VIAL ONE (12:06)
[2017-03-18 12:21] LABS: BASOPHIL 0.4 % (0-2.0); EOSINOPHIL 0.7 % (0-4.5); MCHC 34.6 g/dl (32.0-36.0); MEAN CELL VOLUME 89.5 fl (80-96); MEAN PLT VOLUME 7.7 fl (7.5-11.1); NEUTROPHILS 72.9 % (42.8-82.8); PLATELET COUNT 206 K/MM3 (134-434); RDW 12.1 % (11.6-15.6); WHITE BLOOD COUNT 6.1 K/mm3 (4.0-10.0)
[2017-03-18 12:45] LABS: ALBUMIN 4.2 g/dl (3.4-5.0); ALK PHOS 119 U/L (45-117); ANION GAP 5 (8-16); BILIRUBIN,TOTAL 1.4 mg/dL (0.2-1.0); CALCIUM 9.2 mg/dL (8.5-10.1); CO2 30 mmol/L (21-32); CREATININE 0.6 mg/dL (0.55-1.02); GLUCOSE,RANDOM 86 mg/dL (74-106); SGOT/AST 298 U/L (15-37); SGPT/ALT 220 U/L (12-78); TOT PROT 8.3 g/dl (6.4-8.2)
[2017-03-18 15:44] VITALS: BP 121/51; PULSE 68
== END 2017-03-18 15:45 | disposition home or self-care (01) ==
LOC: JER 10:34
PROC: 3E033GC Introduction of Other Therapeutic Substance into Peripheral Vein, Percutaneous Approach (ICD-10-PCS; principal; 2017-03-18)
DX: R10.84 Generalized abdominal pain (principal); F90.9 Attention-deficit hyperactivity disorder, unspecified type; F41.9 Anxiety disorder, unspecified; F20.9 Schizophrenia, unspecified; K21.9 Gastro-esophageal reflux disease without esophagitis; Q43.1 Hirschsprung's disease
CPT/HCPCS: 36415; 74177-TC; 80053; 84703; 85025; 96374; 99283-25

== ENCOUNTER 2018-03-14 16:22 | Emergency (ER) | payer OTHER ==
[2018-03-14 16:53] VITALS: BMI 26.2
--- NOTE | 2018-03-14 16:58 | PDOC ---
History of Present Illness - General Chief Complaint: Pain Stated Complaint: ABD PAIN Time Seen by Provider: 03/14/18 16:37 - History of Present Illness Initial Comments: 27 yo F w a sig pmh of hirschprung s/p colostomy/ileostomy 19 years ago, anxiety , depression, who presents from Dr. Madison's office who sent her here. she went to [facility] with 3 days of non-productive cough, but nor fever or chills. When she was getting blood drawn at the PCP today she passed out and lost consciousness for about 30-40 seconds. She was also experiencing some lightheadedness so Dr. Madison sent her here. Now in the ED she is reporting 4- 5 loose bowel movements associated with epigastric and lower abdominal pain. She also endorses dysuria since last week. She endorse nausea but no emesis. She states she is not sexually active, and is not sure when her last LMP was. PCP: Dr. Madison Allergies: Morphine, hong konger yogurt Social hx: Denies cigarette, alcohol, or illicit drug usage. Past History - Past Medical History Allergies/Adverse Reactions: Allergies Allergy/AdvReac Type Severity Reaction Status Date / Time morphine Allergy Verified 03/14/18 16:53 JAPANESE YOGURT Allergy Hives Uncoded 03/14/18 16:53 Home Medications: Ambulatory Orders Omeprazole 40 mg PO DAILY PRN 01/19/17 clonazePAM [KlonoPIN] 0.5 mg PO BID PRN 01/19/17 Aripiprazole [Abilify -] 2 mg PO DAILY 03/14/18 Escitalopram Oxalate [Lexapro -] 5 mg PO DAILY 03/14/18 Anemia: No Asthma: Yes Cancer: No Cardiac Disorders: No CVA: No COPD: No DVT: No Dementia: No Diabetes: No Dialysis: No GI Disorders: Yes (Acid reflux,hirschsprung's disease) Disorders: No HTN: No Hypercholesterolemia: No Kidney Stones: No Liver Disease: No Psychiatric Problems: Yes (ANXEITY,PANIC, ADHD,SCHIZOPH) Seizures: No Thyroid Disease: No Lung CA: No - Surgical History Abdominal Surgery: Yes (COLOSTOMY NAD ILEOSTOMY BOTH REVERSED) Appendectomy: No Cardiac Surgery: No Cholecystectomy: Yes Gastric Stapling: No Lung Surgery: No Neurologic Surgery: No - Immunization History Immunization Up to Date: Yes - Suicide/Smoking/Psychosocial Hx Smoking History: Never smoked Have you smoked in the past 12 months: No Number of Cigarettes Smoked Daily: 0 Information on smoking cessation initiated: No Hx Alcohol Use: No Drug/Substance Use Hx: No Substance Use Type: None Hx Substance Use Treatment: No Review of Systems - Review of Systems Comments:: CONSTITUTIONAL: Absent: fever, no chills, no fatigue EYES: Absent: visual changes ENT: Absent: ear pain, no sore throat CARDIOVASCULAR: Present: Chest pain Absent: no palpitations RESPIRATORY: Absent: cough, no SOB GI: Present: Abdominal Pain, nausea, diarrhea Absent: no vomiting, no constipation GENITOURINARY: Present: Dysuria Absent: no frequency, no hematuria MUSKULOSKELETAL: Absent: back pain, no arthralgia, no myalgia SKIN: Absent: rash NEURO: Absent: headache *Physical Exam - Vital Signs Last Vital Signs Temp Pulse Resp BP Pulse Ox 97.9 F 109 H 16 113/77 100 03/14/18 16:25 03/14/18 16:25 03/14/18 16:25 03/14/18 16:25 03/14/18 16:25 - Physical Exam Comments: GENERAL: Well-appearing, well-nourished. No apparent distress. HEENT: Normocephalic, atraumatic. PERRL, EOM intact. CARDIOVASCULAR: Normal S1, S2. Regular rate and rhythm. PULMONARY: Clear to auscultation bilaterally. ABDOMEN: Soft, non-distended, non-tender. EXTREMITIES: Normal ROM in all four extremities. No gross deformities. SKIN: Warm, dry. No rash NEUROLOGICAL: No focal neurological deficits. ED Treatment Course - LABORATORY CBC & Chemistry Diagram: 03/14/18 17:30 03/14/18 17:30 Medical Decision Making - Medical Decision Making 27 yo F w a sig pmh of hirschprung s/p colostomy/ileostomy 19 years ago, anxiety , depression here with non-specific chest discomfort, abdominal discomfort, and dysuria. DD includes but not limited to: UTI, heartburn, vasovagal syncope, dehydration, pancreatitis, colitis, arrhythmia Plan: cbc, cmp, ua/uc, hcg, utox, pelvic US, zofran, pepcid, maalox, re-assess. UA negative, utox negative This is likely heartburn. pending Bladder US read. US unremarkable. Called up Dr. Vazquez - He agrees that given negative test results and no significant findings patient can go home and follow up with Dr. Vazquez Will DC patient with PCP FU *DC/Admit/Observation/Transfer Diagnosis at time of Disposition: Abdominal pain - Discharge Dispostion Disposition: HOME Condition at time of disposition: Stable Decision to Admit order: No - Referrals Referrals: Meryl Vazquez MD [Primary Care Provider] - - Patient Instructions Printed Discharge Instructions: Heartburn -- Overview, Acute Abdominal Pain Additional Instructions: You came into the ER with abdominal pain. We believe your pain is a result of heartburn. Please make sure to schedule a follow up appointment with Dr. Olivas in the next 3 to 5 days. Come back to the ER if your pain worsens, you develop a high fever, or have any other new or worsening concerns. Thank you for coming to the [facility] ER. We hope you feel better soon! Print Language: PORTUGUESE - Post Discharge Activity
[2018-03-14] MEDS ORDERED: SODIUM CHLORIDE 0.9% 500 ML INFUS.BAG IV ONE (17:21)
[2018-03-14 18:07] LABS: BASO % 0.6 % (0-2.0); HEMATOCRIT 36.7 % (32.4-45.2); HEMOGLOBIN 12.5 GM/dL (10.7-15.3); LYMPH % 22.2 % (8-40); MCH 30.8 pg (25.7-33.7); MEAN CELL VOLUME 90.5 fl (80-96); MEAN PLT VOLUME 8.4 fl (7.5-11.1); NEUT % 69.2 % (42.8-82.8); PLATELET COUNT 272 K/MM3 (134-434); RBC 4.05 M/mm3 (3.60-5.2); RDW 12.4 % (11.6-15.6); WHITE BLOOD COUNT 6.4 K/mm3 (4.0-10.0)
[2018-03-14 18:36] LABS: ALK PHOS 132 U/L (45-117); ANION GAP 5 MMOL/L (8-16); BILIRUBIN,TOTAL 0.8 mg/dL (0.2-1); BLOOD UREA NITROGEN 9 mg/dL (7-18); CALCIUM 9.7 mg/dL (8.5-10.1); CHLORIDE 107 mmol/L (98-107); CO2 29 mmol/L (21-32); CREATININE 0.6 mg/dL (0.55-1.3); GLUCOSE,RANDOM 87 mg/dL (74-106); LIPASE 79 U/L (73-393); MAGNESIUM 2.4 mg/dL (1.8-2.4); SGOT/AST 20 U/L (15-37); SGPT/ALT 40 U/L (13-61); SODIUM 140 mmol/L (136-145); TOT PROT 8.3 g/dl (6.4-8.2)
[2018-03-14 18:46] LABS: HCG,QUALITATIVE URINE Negative
[2018-03-14 18:50] LABS: COCAINE, UR NEGATIVE ng/ml (CUTOFF=300); METHADONE, UR NEGATIVE ng/ml (CUTOFF=300); OPIATES, URI NEGATIVE ng/ml (CUTOFF=300); PHENCYCLIDINE,URINE NEGATIVE ng/ml (CUTOFF=25); URINE AMPHETAMINES NEGATIVE ng/ml (CUTOFF=500); URINE BARBITURATES NEGATIVE ng/ml (CUTOFF=200); URINE BENZODIAZEPINES NEGATIVE ng/ml (CUTOFF=200)
[2018-03-14 19:16] LABS: URINE APPEARANCE CLEAR; URINE BILIRUBIN NEGATIVE (<2.0 mg/dL); URINE COLOR STRAW; URINE GLUCOSE (UA) NEGATIVE (NEGATIVE); URINE KETONE NEGATIVE (NEGATIVE); URINE LEUK ESTERASE NEGATIVE (NEGATIVE); URINE NITRITE NEGATIVE (NEGATIVE); URINE PROTEIN NEGATIVE (NEGATIVE); URINE UROBILINOGEN NEGATIVE mg/dL (0.2-1.0)
[2018-03-14] MEDS ORDERED: FAMOTIDINE 20 MG/50 ML IVPB 20 MG/50 ML MG IVPB ONE ×2 (20:14→20:49)
[2018-03-14] MEDS ORDERED: clonazePAM 0.5 MG TABLET PO ONE (20:14)
[2018-03-14] MEDS ORDERED: ONDANSETRON 4 MG/2 ML VIAL IVPUSH ONE (20:15)
[2018-03-14] MEDS ORDERED: MAG HYDROX/AL HYDROX/SIMETH 30 ML UNIT-DOSE CUP PO ONE (20:15)
[2018-03-14] MEDS ORDERED: MAG HYDROX/AL HYDROX/SIMETH 30 ML UNIT-DOSE CUP ONE (20:49)
[2018-03-14] MEDS ORDERED: clonazePAM 0.5 MG TABLET ONE (20:49)
[2018-03-14] MEDS ORDERED: ONDANSETRON 4 MG/2 ML VIAL ONE (20:49)
[2018-03-14 21:00] VITALS: BP 103/54; PULSE 73; TEMP 98.3
[2018-03-14] MEDS ORDERED: IBUPROFEN 400 MG TABLET (FP) PO ONE (22:12)
--- NOTE | 2018-03-14 22:48 | PDOC ---
Attending Attestation - Resident Resident Name: PaulneryPerez - ED Attending Attestation I have performed the following: I have examined & evaluated the patient, The case was reviewed & discussed with the resident, I agree w/resident's findings & plan, Exceptions are as noted - Medical Decision Making 03/14/18 22:45 27 yo F with here c/o syncope while in dr garcia office during blood draw. no c/o cp no f/c has had loose watery stool likley differential dehydration, electrolyte abnormal dehydration anemia. due to lower abd pain r/o . tvus evaluate for ovarian pathology. reassess. <Glenna Lu - Last Filed: 03/14/18 22:44> - HPI HPI: 03/14/18 22:48 The patient is a 27 year old female with a significant past medical history of anxiety, depression, hirschsprung s/p colectomy who presents to the ED, sent by PCP, for 3 days of cough and loss of consciousness earlier today. Patient reports 3 days of unproductive cough and states she went to her PCP earlier today. Patient reports a sudden onset of lightheadedness, nausea, and had an episode of loss of consciousness that lasted 30 seconds when she had her blood drawn at her PCPs office. Patient's PCP sent the patient to ED to be admitted. Patient also reports 4-5 episodes of loose watery stool with epigastric and lower abdominal pain earlier today and one week of dysuria. Denies fever or chills. Denies hematuria or hematochezia. Denies vomiting. Denies any other symptoms. PCP: Dr. Vazquez - Physicial Exam PE: 03/14/18 22:48 GENERAL: Awake, alert, and fully oriented, in no acute distress HEAD: No signs of trauma EYES: + Horizontal nystagmus. PERRLA, sclera anicteric, conjunctiva clear ENT: Auricles normal inspection, hearing grossly normal, nares patent, oropharynx clear without exudates. Moist mucosa NECK: Normal ROM, supple, no lymphadenopathy, JVD, or masses LUNGS: Breath sounds equal, clear to auscultation bilaterally. No wheezes, and no crackles HEART: Regular rate and rhythm, normal S1 and S2, no murmurs, rubs or gallops ABDOMEN: Soft, nontender, normoactive bowel sounds. No guarding, no rebound. No masses EXTREMITIES: Normal range of motion, no edema. No clubbing or cyanosis. No cords, erythema, or tenderness NEUROLOGICAL: Cranial nerves II through XII grossly intact. Normal speech, normal gait SKIN: Warm, Dry, normal turgor, no rashes or lesions noted. <Devi Richard - Last Filed: 03/14/18 22:49> Attestations - Attestations 03/14/18 22:49 Documentation prepared by Devi Richard, acting as medical collections representative for Glenna Lu MD. <Devi Richard - Last Filed: 03/14/18 22:49>
[2018-03-15] MEDS ORDERED: IBUPROFEN 400 MG TABLET (FP) PO ONE ×2 (00:29→00:31)
--- NOTE | 2018-03-15 09:28 | EKG ---
Test Reason : Blood Pressure : / mmHG Vent. Rate : 062 BPM Atrial Rate : 062 BPM P-R Int : 136 ms QRS Dur : 094 ms QT Int : 402 ms P-R-T Axes : -10 021 023 degrees QTc Int : 408 ms NORMAL SINUS RHYTHM INCOMPLETE RIGHT BUNDLE BRANCH BLOCK WHEN COMPARED WITH ECG OF 11-FEB-2017 16:02, NO SIGNIFICANT CHANGE WAS FOUND Confirmed by ROSMERY ULRICH MD ([id number]) on 03/15/2018 9:27:53 AM Referred By: Confirmed By:ROSMERY ULRICH MD
== END 2018-03-15 01:32 | disposition home or self-care (01) ==
LOC: JER 16:22
PROC: 3E033GC Introduction of Other Therapeutic Substance into Peripheral Vein, Percutaneous Approach (ICD-10-PCS; principal; 2018-03-14)
PROC: 3E033GC Introduction of Other Therapeutic Substance into Peripheral Vein, Percutaneous Approach (ICD-10-PCS; 2018-03-14)
DX: R10.84 Generalized abdominal pain (principal); R55 Syncope and collapse; R41.9 Unspecified symptoms and signs involving cognitive functions and awareness; F41.0 Panic disorder [episodic paroxysmal anxiety]; F90.9 Attention-deficit hyperactivity disorder, unspecified type; F20.9 Schizophrenia, unspecified; Q43.1 Hirschsprung's disease; Z87.19 Personal history of other diseases of the digestive system; Z87.09 Personal history of other diseases of the respiratory system
CPT/HCPCS: 36415; 76856-TC; 80053; 80307; 81003; 83690; 83735; 84703; 85025; 87086; 93005; 93010; 99283-25

== ENCOUNTER 2018-03-15 16:12 | Observation (INO) | payer OTHER ==
[2018-03-15 16:37] VITALS: BMI 23.4
[2018-03-15] MEDS ORDERED: SODIUM CHLORIDE 1,000 ML IV STA (18:19)
[2018-03-15] MEDS ORDERED: ACETAMINOPHEN 1000 MG/100 ML VIAL (NON FORMULARY) IVPB ONE (19:33)
[2018-03-15] MEDS ORDERED: METOCLOPRAMIDE HCL INJECTION 10 MG/2 ML VIAL IVPUSH ONE (19:33)
[2018-03-15] MEDS ORDERED: FAMOTIDINE 20 MG/50 ML IVPB 20 MG/50 ML MG IVPB ONE ×2 (19:33→21:01)
[2018-03-15 19:57] LABS: BASO % 0.7 % (0-2.0); EOS % 1.9 % (0-4.5); HEMOGLOBIN 11.4 GM/dL (10.7-15.3); LYMPH % 30.4 % (8-40); MCH 30.6 pg (25.7-33.7); MCHC 33.6 g/dl (32.0-36.0); MEAN CELL VOLUME 91.1 fl (80-96); MEAN PLT VOLUME 8.3 fl (7.5-11.1); MONO % 8.6 % (3.8-10.2); NEUT % 58.4 % (42.8-82.8); PLATELET COUNT 240 K/MM3 (134-434); RBC 3.73 M/mm3 (3.60-5.2); RDW 12.4 % (11.6-15.6); WHITE BLOOD COUNT 4.6 K/mm3 (4.0-10.0)
[2018-03-15 20:12] LABS: URINE APPEARANCE CLEAR; URINE BILIRUBIN NEGATIVE (<2.0 mg/dL); URINE COLOR STRAW; URINE GLUCOSE (UA) NEGATIVE (NEGATIVE); URINE KETONE NEGATIVE (NEGATIVE); URINE LEUK ESTERASE NEGATIVE (NEGATIVE); URINE NITRITE NEGATIVE (NEGATIVE); URINE PROTEIN NEGATIVE (NEGATIVE); URINE UROBILINOGEN NEGATIVE mg/dL (0.2-1.0)
--- NOTE | 2018-03-15 20:12 | PDOC ---
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 The patient states she was going to the bathroom when she had a syncopal episode and fell onto the floor hitting her head. The patient states she may have lost consciousness for an unknown duration. The patient also endorses epigastric pain , diarrhea (non bloody) and nausea with vomiting (non bloody non bilious) during the day. The patient states she was seen yesterday here at [facility] for evaluation s/p a syncopal episode which occurred while having blood drawn at Dr Walsh office. The patient states she went to see Dr Vazquez for a non productive cough of 3 weeks. As per documentation on file, the patient had labs and pelvic ultrasound performed which were normal, negative urine analysis and was discharged home. The patient denies chest pain, palpitations or shortness of breath. Denies fever, chills and constipation. Denies dysuria, frequency, urgency and hematuria. Allergies: Morphine PCP: Dr Vazquez <Perez Parsons - Last Filed: 03/15/18 20:26> - General History Source: Patient Exam Limitations: No Limitations <Thien Araya - Last Filed: 03/15/18 21:11> - General Chief Complaint: Nausea/Vomiting Stated Complaint: VOMITING Time Seen by Provider: 03/15/18 18:18 Past History <Perez Parsons - Last Filed: 03/15/18 20:26> - Past Medical History Anemia: No Asthma: Yes Cancer: No Cardiac Disorders: No CVA: No COPD: No DVT: No Dementia: No Diabetes: No Dialysis: No GI Disorders: Yes (Acid reflux,hirschsprung's disease) Disorders: No HTN: No Hypercholesterolemia: No Kidney Stones: No Liver Disease: No Psychiatric Problems: Yes (ANXEITY,PANIC, ADHD,SCHIZOPH) Seizures: No Thyroid Disease: No Lung CA: No - Surgical History Abdominal Surgery: Yes (COLOSTOMY NAD ILEOSTOMY BOTH REVERSED) Appendectomy: Yes Cardiac Surgery: No Cholecystectomy: Yes Gastric Stapling: No Lung Surgery: No Neurologic Surgery: No - Immunization History Immunization Up to Date: Yes - Suicide/Smoking/Psychosocial Hx Smoking History: Never smoked Have you smoked in the past 12 months: No Number of Cigarettes Smoked Daily: 0 Hx Alcohol Use: No Drug/Substance Use Hx: No Substance Use Type: None Hx Substance Use Treatment: No <QuianaThien - Last Filed: 03/15/18 21:11> - Past Medical History Allergies/Adverse Reactions: Allergies Allergy/AdvReac Type Severity Reaction Status Date / Time morphine Allergy Verified 03/15/18 16:33 MACEDONIAN YOGURT Allergy Hives Uncoded 03/15/18 16:33 Home Medications: Ambulatory Orders Omeprazole 40 mg PO DAILY PRN 01/19/17 clonazePAM [KlonoPIN] 0.5 mg PO BID PRN 01/19/17 Aripiprazole [Abilify -] 2 mg PO DAILY 03/14/18 Escitalopram Oxalate [Lexapro -] 5 mg PO DAILY 03/14/18 Review of Systems - Review of Systems Comments:: 03/15/18 20:20 GENERAL/CONSTITUTIONAL: No fever or chills. No weakness. HEAD, EYES, EARS, NOSE AND THROAT: No change in vision. No ear pain or discharge. No sore throat. CARDIOVASCULAR: No chest pain or shortness of breath. RESPIRATORY: No cough, wheezing, or hemoptysis. GASTROINTESTINAL: (+) Epigastric pain. (+) Nausea. (+) Vomiting. (+) Diarrhea. No constipation. GENITOURINARY: No dysuria, frequency, or change in urination. MUSCULOSKELETAL: No joint or muscle swelling or pain. No neck or back pain. SKIN: No rash NEUROLOGIC: (+) Syncopal episode. No headache, vertigo, or change in strength/ sensation. ENDOCRINE: No increased thirst. No abnormal weight change. HEMATOLOGIC/LYMPHATIC: No anemia, easy bleeding, or history of blood clots. ALLERGIC/IMMUNOLOGIC: No hives or skin allergy. <Perez Parsons - Last Filed: 03/15/18 20:26> *Physical Exam - Vital Signs Last Vital Signs Temp Pulse Resp BP Pulse Ox 98.8 F 87 18 105/65 98 03/15/18 16:33 03/15/18 16:33 03/15/18 16:33 03/15/18 16:33 03/15/18 16:33 - Physical Exam Comments: 10/19/18 20:20 GENERAL: Awake, alert, and fully oriented, in no acute distress HEAD: No signs of trauma EYES: PERRLA, EOMI, sclera anicteric, conjunctiva clear ENT: Auricles normal inspection, hearing grossly normal, nares patent, oropharynx clear without exudates. Moist mucosa NECK: Normal ROM, supple, no lymphadenopathy, JVD, or masses LUNGS: Breath sounds equal, clear to auscultation bilaterally. No wheezes, and no crackles HEART: Regular rate and rhythm, normal S1 and S2, no murmurs, rubs or gallops ABDOMEN: (+) Epigastric tenderness to palpation. Soft, normoactive bowel sounds. No guarding, no rebound. No masses EXTREMITIES: Normal range of motion, no edema. No clubbing or cyanosis. No cords, erythema, or tenderness NEUROLOGICAL: Cranial nerves II through XII grossly intact. Normal speech, normal gait SKIN: Warm, Dry, normal turgor, no rashes or lesions noted. <Perez Parsons - Last Filed: 03/15/18 20:26> - Vital Signs Last Vital Signs Temp Pulse Resp BP Pulse Ox 98.8 F 87 18 105/65 98 03/15/18 16:33 03/15/18 16:33 03/15/18 16:33 03/15/18 16:33 03/15/18 16:33 <Thien Araya - Last Filed: 03/15/18 21:11> Heart Score/ECG Review #1 ECG reviewed & interpreted by me at: 20:15 03/15/18 20:22 NSR 71, incomplete RBBB, no std/xenia, QTC 412 msec, no brugada, no HOCM, no WPW. <Thien Araya - Last Filed: 03/15/18 21:11> ED Treatment Course - LABORATORY CBC & Chemistry Diagram: 03/15/18 19:39 03/15/18 19:39 - ADDITIONAL ORDERS Additional order review: Laboratory Results 03/15/18 19:52 Urine Color Straw Urine Appearance Clear Urine pH 5.0 Ur Specific [place] 1.014 Urine Protein Negative Urine Glucose (UA) Negative Urine Ketones Negative Urine Blood Negative Urine Nitrite Negative Urine Bilirubin Negative Urine Urobilinogen Negative Ur Leukocyte Esterase Negative 10/19/18 19:39 RBC 3.73 MCV 91.1 MCHC 33.6 RDW 12.4 MPV 8.3 Neutrophils % 58.4 Lymphocytes % 30.4 D Monocytes % 8.6 Eosinophils % 1.9 D Basophils % 0.7 <Perez Parsons - Last Filed: 03/15/18 20:26> - LABORATORY CBC & Chemistry Diagram: 03/15/18 19:39 03/15/18 19:39 - ADDITIONAL ORDERS Additional order review: 03/15/18 19:39 RBC 3.73 MCV 91.1 MCHC 33.6 RDW 12.4 MPV 8.3 Neutrophils % 58.4 Lymphocytes % 30.4 D Monocytes % 8.6 Eosinophils % 1.9 D Basophils % 0.7 <Thien Araya - Last Filed: 03/15/18 21:11> Medical Decision Making - Medical Decision Making 03/15/18 20:06 A portion of this note was documented by scribe services under my direction. I have reviewed the details of the note, within reason, and agree with the documentation with the following case summary and management plan written by me. Patient treated in the ED. Nursing notes are reviewed and incorporated into the medical decision-making. Vital signs reviewed. Peripheral IV access obtained by the nurse, laboratory studies are drawn and sent, reviewed and interpreted by myself. Vital Signs Temp Pulse Resp BP Pulse Ox 98.8 F 87 18 105/65 98 03/15/18 16:33 03/15/18 16:33 03/15/18 16:33 03/15/18 16:33 03/15/18 16:33 27-year-old female Patient with past medical history of anxiety and depression, persistent nystagmus presents with syncopal episode again. The patient was seen yesterday for to be in the doctor's office in the setting of URI-like symptoms. Patient was clear to discharge. However, the patient continued endorse generalized weakness and fatigue. Today, the patient was including towards the bathroom when she suddenly syncopized. Denies any chest pain or shortness of breath or preceding symptoms. Patient reports bumping her head but denies any lacerations or abrasions. Does not take any antiquated gush medications. Patient reports a mild headache but no other symptoms. She reports persistence of epigastric pain with nausea vomiting and diarrhea. Reports tactile fevers at home. No fevers or chills. Does report some flulike symptoms. Came to the ER. While the syncope may be potentially secondary to orthostatic or vasovagal syncope, it is concerning that the patient did have a drop like syncope. We'll need to evaluate for these symptoms. This is the second day in a row with syncope episodes. Patient does have some left upper quadrant discomfort which I suspect is gastritis or vomiting. We'll obtain EKG and labs including lipase and troponin. Ultimately, given the persistence of symptoms and multiple syncope episodes, the patient would benefit from an observation under telemetry in the hospital. 03/15/18 20:33 CBC, BMP 03/15/18 19:39 03/15/18 19:39 CMP Sodium 140 mmol/L (136-145) 03/15/18 19:39 Potassium 4.2 mmol/L (3.5-5.1) 03/15/18 19:39 Chloride 109 mmol/L (98-107) H 03/15/18 19:39 Carbon Dioxide 27 mmol/L (21-32) 03/15/18 19:39 Anion Gap 4 MMOL/L (8-16) L 03/15/18 19:39 BUN 8 mg/dL (7-18) 03/15/18 19:39 Creatinine 0.5 mg/dL (0.55-1.3) L 03/15/18 19:39 Creat Clearance w eGFR > 60 (>60) 03/15/18 19:39 Random Glucose 88 mg/dL (74-106) 03/15/18 19:39 Calcium 9.5 mg/dL (8.5-10.1) 03/15/18 19:39 Magnesium 2.2 mg/dL (1.8-2.4) 03/15/18 19:39 Total Bilirubin 0.8 mg/dL (0.2-1) 03/15/18 19:39 AST 24 U/L (15-37) 03/15/18 19:39 ALT 33 U/L (13-61) 03/15/18 19:39 Alkaline Phosphatase 115 U/L (45-117) 03/15/18 19:39 Total Protein 7.6 g/dl (6.4-8.2) 03/15/18 19:39 Albumin 3.9 g/dl (3.4-5.0) 03/15/18 19:39 Lipase 77 U/L (73-393) 03/15/18 19:39 Serum , Qual Negative 03/15/18 19:39 Urine Test Results Urine Color Straw 03/15/18 19:52 Urine Appearance Clear 03/15/18 19:52 Urine pH 5.0 (5.0-8.0) 03/15/18 19:52 Ur Specific [place] 1.014 (1.010-1.035) 03/15/18 19:52 Urine Protein Negative (NEGATIVE) 03/15/18 19:52 Urine Glucose (UA) Negative (NEGATIVE) 03/15/18 19:52 Urine Ketones Negative (NEGATIVE) 03/15/18 19:52 Urine Blood Negative (NEGATIVE) 03/15/18 19:52 Urine Nitrite Negative (NEGATIVE) 03/15/18 19:52 Urine Bilirubin Negative (<2.0 mg/dL) 03/15/18 19:52 Ur Leukocyte Esterase Negative (NEGATIVE) 03/15/18 19:52 03/15/18 21:11 Case discussed with [facility] hospitalist. Case admitted to [facility] obs. Case discussed in detail with admitting physician including history, physical exam and ancillary studies. Admitting physician has assumed care for the patient, will follow all pending diagnostics and will complete the evaluation and treatment. <Thien Araya - Last Filed: 03/15/18 21:11> *DC/Admit/Observation/Transfer - Attestations Scribe Attestion: 03/15/18 20:20 Documentation prepared by Perez Parsons, acting as medical imaging technician for Thien Araya MD. <Perez Parsons - Last Filed: 03/15/18 20:26> - Discharge Dispostion Decision to Admit order: Yes <Thien Araya - Last Filed: 03/15/18 21:11> Diagnosis at time of Disposition: Abdominal pain Qualifiers: Abdominal location: unspecified location Qualified Code(s): R10.9 - Unspecified abdominal pain Syncope Qualifiers: Syncope type: unspecified Qualified Code(s): R55 - Syncope and collapse - Discharge Dispostion Condition at time of disposition: Stable - Referrals Referrals: Meryl Vazquez MD [Primary Care Provider] - - Patient Instructions - Post Discharge Activity
[2018-03-15 20:25] LABS: ALBUMIN 3.9 g/dl (3.4-5.0); ALK PHOS 115 U/L (45-117); ANION GAP 4 MMOL/L (8-16); BILIRUBIN,TOTAL 0.8 mg/dL (0.2-1); BLOOD UREA NITROGEN 8 mg/dL (7-18); CALCIUM 9.5 mg/dL (8.5-10.1); CHLORIDE 109 mmol/L (98-107); CO2 27 mmol/L (21-32); CREATININE 0.5 mg/dL (0.55-1.3); GLUCOSE,RANDOM 88 mg/dL (74-106); LIPASE 77 U/L (73-393); MAGNESIUM 2.2 mg/dL (1.8-2.4); POTASSIUM 4.2 mmol/L (3.5-5.1); SGOT/AST 24 U/L (15-37); SGPT/ALT 33 U/L (13-61); SODIUM 140 mmol/L (136-145); TOT PROT 7.6 g/dl (6.4-8.2)
[2018-03-15] MEDS ORDERED: ACETAMINOPHEN INJECTION 100 ML IVPB ONE (21:00)
[2018-03-15] MEDS ORDERED: METOCLOPRAMIDE HCL INJECTION 10 MG/2 ML VIAL ONE (21:00)
[2018-03-15] MEDS ORDERED: ACETAMINOPHEN 325 MG TABLET (FP) PO PRN (21:58)
[2018-03-15] MEDS ORDERED: SODIUM CHLORIDE 1,000 ML IV SCH (22:00)
[2018-03-15] MEDS ORDERED: clonazePAM 0.5 MG TABLET PO PRN (22:01)
[2018-03-15] MEDS ORDERED: ONDANSETRON 4 MG TABLET PO PRN (22:03)
[2018-03-15] MEDS ORDERED: ONDANSETRON 4 MG TABLET PO STA (22:11)
--- NOTE | 2018-03-15 22:11 | HP ---
CHIEF COMPLAINT: Syncopal episode PCP: Dr. Meryl Vazquez HISTORY OF PRESENT ILLNESS: 27 year old female with a PMH significant for Hirschsprung's Disease, anxiety, depression, and GERD presented to the ED today after she fainted at home. Patient is a poor historian. Patient reports she has not been feeling well starting yesterday morning with subjective fever, chills, nausea, vomiting and diarrhea. She had an appointment with her PCP Dr. Vazquez yesterday for a pelvic US (unable to recall reason for US), and fainted in the office when they tried to draw labs. She was brought to [facility] but was not admitted. After she woke up this morning, "passed out" on the bathroom floor after urinating. She was brought back to [facility] via ambulance. No significant findings in ED work up; VSS, labs WNL, troponin negative, UA negative, flu swab negative, EKG unremarkable. She was given a liter of NS and Pepcid 20 mg. She reports still feeling weak and nauseous but she also feeling hungry. Denies: chest pain, SOB, congestion, bloody stool/emesis, dysuria. Recent Travel: No PAST MEDICAL HISTORY: Hirschsprung's Disease Anxiety Depression GERD PAST SURGICAL HISTORY: Colostomy (2008) Ileostomy Cholesystectomy Social History: Smoking: No Alcohol: No Drugs: No Allergies morphine Allergy (Verified 03/15/18 16:33) KYRGYZ YOGURT Allergy (Uncoded 03/15/18 16:33) Hives HOME MEDICATIONS: Home Medications Medication Instructions Recorded Omeprazole 40 mg PO DAILY PRN 01/19/17 clonazePAM [KlonoPIN] 0.5 mg PO BID PRN 01/19/17 Aripiprazole [Abilify -] 2 mg PO DAILY 03/14/18 Escitalopram Oxalate [Lexapro -] 5 mg PO DAILY 03/14/18 REVIEW OF SYSTEMS CONSTITUTIONAL: (+) subjective fever, chills, weakness Absent: diaphoresis, malaise, loss of appetite, weight change HEENT: Absent: rhinorrhea, nasal congestion, throat pain, throat swelling, difficulty swallowing, mouth swelling, ear pain, eye pain, visual changes CARDIOVASCULAR: (+) lightheadedness Absent: chest pain, syncope, palpitations, irregular heart rate, peripheral edema RESPIRATORY: Absent: cough, shortness of breath, dyspnea with exertion, orthopnea, wheezing, stridor, hemoptysis GASTROINTESTINAL:(+) abdominal pain, nausea, vomiting, diarrhea Absent:abdominal distension, constipation, melena, hematochezia GENITOURINARY: Absent: dysuria, frequency, urgency, hesitancy, hematuria, flank pain, genital pain MUSCULOSKELETAL: Absent: myalgia, arthralgia, joint swelling, back pain, neck pain SKIN: Absent: rash, itching, pallor HEMATOLOGIC/IMMUNOLOGIC: Absent: easy bleeding, easy bruising, lymphadenopathy, frequent infections ENDOCRINE: Absent: unexplained weight gain, unexplained weight loss, heat intolerance, cold intolerance NEUROLOGIC: Absent: headache, focal weakness or paresthesias, dizziness, unsteady gait, seizure, mental status changes, bladder or bowel incontinence PSYCHIATRIC: (+) anxiety, depression Absent: suicidal or homicidal ideation, hallucinations. PHYSICAL EXAMINATION Vital Signs - 24 hr 03/15/18 03/15/18 16:33 21:35 Temperature 98.8 F Pulse Rate 87 Pulse Rate [ 75 Radial] Respiratory 18 18 Rate Blood Pressure 105/65 Blood Pressure 106/57 L [Right Arm] O2 Sat by Pulse 98 97 Oximetry (%) GENERAL: Awake, alert, and oriented A&Ox3 with some confusion, in no acute distress. HEAD: Normal with no signs of trauma. EYES: b/l nystagmus, injected conjunctiva, pupils equal, round and reactive to light, extraocular movements intact, sclera anicteric, no lid lag. EARS, NOSE, THROAT: Missing teeth to upper left palate, nares patent, oropharynx clear without exudates. Moist mucous membranes. NECK: Normal range of motion, supple without lymphadenopathy, JVD, or masses. LUNGS: Breath sounds equal, clear to auscultation bilaterally. No wheezes, and no crackles. No accessory muscle use. HEART: Regular rate and rhythm, normal S1 and S2 without murmur, rub or gallop. ABDOMEN: Soft, nontender, not distended, hyperactive bowel sounds, no guarding, no rebound, no masses. No hepatomegaly or splenomegaly. MUSCULOSKELETAL: Normal range of motion at all joints. No bony deformities or tenderness. No CVA tenderness. UPPER EXTREMITIES: 2+ pulses, warm, well-perfused. No cyanosis. No clubbing. No peripheral edema. LOWER EXTREMITIES: 2+ pulses, warm, well-perfused. No calf tenderness. No peripheral edema. NEUROLOGICAL: No facial droop, tongue midline, normal speech. gait not observed PSYCHIATRIC: Cooperative. Good eye contact. Appropriate mood and affect. SKIN: Warm, dry, normal turgor, no rashes or lesions noted, normal capillary refill. Laboratory Results - last 24 hr 03/15/18 03/15/18 03/15/18 19:39 19:39 19:39 WBC 4.6 RBC 3.73 Hgb 11.4 Hct 34.0 MCV 91.1 MCH 30.6 MCHC 33.6 RDW 12.4 Plt Count 240 MPV 8.3 Absolute Neuts (auto) 2.7 Neutrophils % 58.4 Lymphocytes % 30.4 D Monocytes % 8.6 Eosinophils % 1.9 D Basophils % 0.7 Nucleated RBC % 0 Sodium 140 Potassium 4.2 Chloride 109 H Carbon Dioxide 27 Anion Gap 4 L BUN 8 Creatinine 0.5 L Creat Clearance w eGFR > 60 Random Glucose 88 Calcium 9.5 Magnesium 2.2 Total Bilirubin 0.8 AST 24 ALT 33 Alkaline Phosphatase 115 Total Protein 7.6 Albumin 3.9 Lipase 77 Serum , Qual Negative Urine Color Urine Appearance Urine pH Ur Specific [place] Urine Protein Urine Glucose (UA) Urine Ketones Urine Blood Urine Nitrite Urine Bilirubin Urine Urobilinogen Ur Leukocyte Esterase 03/15/18 19:52 WBC RBC Hgb Hct MCV MCH MCHC RDW Plt Count MPV Absolute Neuts (auto) Neutrophils % Lymphocytes % Monocytes % Eosinophils % Basophils % Nucleated RBC % Sodium Potassium Chloride Carbon Dioxide Anion Gap BUN Creatinine Creat Clearance w eGFR Random Glucose Calcium Magnesium Total Bilirubin AST ALT Alkaline Phosphatase Total Protein Albumin Lipase Serum , Qual Urine Color Straw Urine Appearance Clear Urine pH 5.0 Ur Specific [place] 1.014 Urine Protein Negative Urine Glucose (UA) Negative Urine Ketones Negative Urine Blood Negative Urine Nitrite Negative Urine Bilirubin Negative Urine Urobilinogen Negative Ur Leukocyte Esterase Negative EKG NSR 71, incomplete RBBB, no std/xenia, QTC 412 msec, no brugada, no HOCM, no WPW Influenza A/B Negative ASSESSMENT/PLAN: 27 year old female with a PMH significant for Hirschsprung's Disease, anxiety, depression presented to the ED today after she had fainted in her bathroom with c/o of 2 days of n/v/d. Patient placed on observation for cardiac monitoring and rehydration. Syncope --No significant cardiac findings so far; ECG and troponin negative --On overnight telemetry observation --Monitor orthostatic BP Nausea/Vomiting/Diarrhea --Extensive GI history, patient has a referral for a new GI specialist with whom she plans to schedule an appointment. --Zofran 4 mg PRN --Clear liquid diet as tolerated --Monitor BMP Anxiety/Depression --Patient with significant psych history, she does not currently see a psychiatrist, but plans to schedule an appointment with new referral from PCP --Continue home medications: -Klonopin 0.5 mg BID -Abilify 2 mg BID -Lexapro 5 mg qday GERD --Continue home omeprazole 40 mg FEN --NS @ 100 cc/hr --Electrolytes replete as indicated --Clear liquid diet DVT Prophylaxis --OOB Ambulation Dispo: pt currently requires further inpatient care. FULL CODE Visit type - Emergency Visit Emergency Visit: Yes Care time: The patient presented to the Emergency Department on the above date and was hospitalized for further evaluation of their emergent condition. - New Patient This patient is new to me today: Yes Date on this admission: 03/16/18 - Critical Care Critical Care patient: No
[2018-03-15] MEDS ORDERED: PANTOPRAZOLE 40 MG TABLET (FP) PO SCH (22:15)
[2018-03-15] MEDS ORDERED: ONDANSETRON *ODT* 4 MG TABLET ONE (23:30)
[2018-03-15] MEDS ORDERED: PANTOPRAZOLE 40 MG TABLET (FP) ONE (23:30)
[2018-03-15] MEDS: PANTOPRAZOLE SOD 40 MG SUSPENSION PACKET PO SCH (23:57)
[2018-03-16 08:36] LABS: HEMATOCRIT 31.3 % (32.4-45.2); HEMOGLOBIN 10.8 GM/dL (10.7-15.3); MCH 31.3 pg (25.7-33.7); MCHC 34.4 g/dl (32.0-36.0); MEAN PLT VOLUME 8.6 fl (7.5-11.1); PLATELET COUNT 200 K/MM3 (134-434); RBC 3.44 M/mm3 (3.60-5.2); RDW 12.2 % (11.6-15.6); WHITE BLOOD COUNT 3.4 K/mm3 (4.0-10.0)
[2018-03-16] MEDS: PANTOPRAZOLE SOD 40 MG SUSPENSION PACKET PO SCH (09:57)
[2018-03-16] MEDS ORDERED: ARIPiprazole 2 MG TABLET PO SCH (10:00)
[2018-03-16] MEDS ORDERED: ESCITALOPRAM OXALATE 10 MG TABLET (FP) PO SCH (10:00)
[2018-03-16 10:13] LABS: ANION GAP 6 MMOL/L (8-16); BLOOD UREA NITROGEN 6 mg/dL (7-18); CALCIUM 8.4 mg/dL (8.5-10.1); CHLORIDE 113 mmol/L (98-107); CO2 27 mmol/L (21-32); CREATININE 0.5 mg/dL (0.55-1.3); GLUCOSE,RANDOM 79 mg/dL (74-106); POTASSIUM 4.6 mmol/L (3.5-5.1); SODIUM 146 mmol/L (136-145)
--- NOTE | 2018-03-16 14:31 | DS ---
Physical Examination Vital Signs: Vital Signs Temperature 98.0 F 03/16/18 10:58 Pulse Rate 74 03/16/18 10:58 Respiratory Rate 16 03/16/18 10:58 Blood Pressure 122/73 03/16/18 10:58 O2 Sat by Pulse Oximetry (%) 99 03/16/18 10:58 Findings/Remarks: awake alert tolerating liquid diet advance to solid patient requested to see a psychiatrist denies suicidal or homicidal thoughts denies any physical or verbal abuse Constitutional: Yes: No Distress Eyes: Yes: WNL HENT: Yes: WNL Neck: Yes: WNL Cardiovascular: Yes: WNL Respiratory: Yes: WNL Gastrointestinal: Yes: WNL Renal/: Yes: WNL Musculoskeletal: Yes: WNL Extremities: Yes: WNL Edema: No Peripheral Pulses WNL: Yes Integumentary: Yes: WNL Wound/Incision: Yes: Clean/Dry Neurological: Yes: WNL ...Motor Strength: WNL Psychiatric: Yes: Other (depressed, denies suicide or homicide thoughts) Labs: CBC, BMP 03/16/18 06:00 03/16/18 06:00 Discharge Summary Reason For Visit: SYNCOPE,ABDOMINAL PAIN Current Active Problems Abdominal pain (Acute) Syncope (Acute) Procedures: Principal: labs/xrays/diet advanced Hospital Course: admitted for acute gastroenteritis, tolerating full meals, denies n/v or pain. patient requested psychiatry consult, the ER nurse spoke with Dr Chiang who will see the patient as an outpatient SundayMarch 18 at his office since this is not an emergency. Condition: Improved - Instructions Diet, Activity, Other Instructions: low fat diet, no dairy see Dr Chiang Sunday for psychiatry eval Low WBC offered HIV test patient refused, will recheck cbc in my office in 1-2 weeks and check to see if this is a viral syndrome effect or other. Patient aware and agreeable to f/u as outpatient Referrals: Meryl Vazquez MD [Primary Care Provider] - Disposition: HOME - Home Medications Comprehensive Discharge Medication List: Ambulatory Orders Omeprazole 40 mg PO DAILY PRN 01/19/17 clonazePAM [KlonoPIN] 0.5 mg PO BID PRN 01/19/17 Aripiprazole [Abilify -] 2 mg PO DAILY 03/14/18 Escitalopram Oxalate [Lexapro -] 5 mg PO DAILY 03/14/18 Acetaminophen [Tylenol .Regular Strength -] 650 mg PO Q4H PRN tablet 03/16/18 Ondansetron [Zofran Odt -] 4 mg SL TID #21 od.tablet 03/16/18
[2018-03-16 15:14] VITALS: BP 115/66; PULSE 73; TEMP 98.8
--- NOTE | 2018-03-16 18:03 | EKG ---
Test Reason : Blood Pressure : / mmHG Vent. Rate : 071 BPM Atrial Rate : 071 BPM P-R Int : 134 ms QRS Dur : 094 ms QT Int : 380 ms P-R-T Axes : -07 025 042 degrees QTc Int : 412 ms NORMAL SINUS RHYTHM INCOMPLETE RIGHT BUNDLE BRANCH BLOCK BORDERLINE ECG WHEN COMPARED WITH ECG OF 14-MAR-2018 18:34, NO SIGNIFICANT CHANGE WAS FOUND Confirmed by LIVIA WHITFIELD MD ([id number]) on 03/16/2018 6:03:36 PM Referred By: Confirmed By:LIVIA WHITFIELD MD
== END 2018-03-16 15:26 | disposition home or self-care (01) ==
LOC: JER 16:12 → JERBED 21:12
PROVIDERS: ADMIT Internal Medicine; ATTEND Family Medicine
PROC: 3E033NZ Introduction of Analgesics, Hypnotics, Sedatives into Peripheral Vein, Percutaneous Approach (ICD-10-PCS; principal; 2018-03-15)
PROC: 3E033GC Introduction of Other Therapeutic Substance into Peripheral Vein, Percutaneous Approach (ICD-10-PCS; 2018-03-15)
PROC: 3E0337Z Introduction of Electrolytic and Water Balance Substance into Peripheral Vein, Percutaneous Approach (ICD-10-PCS; 2018-03-15)
DX: R55 Syncope and collapse (principal); R10.9 Unspecified abdominal pain; R11.2 Nausea with vomiting, unspecified; R19.7 Diarrhea, unspecified; F32.9 Major depressive disorder, single episode, unspecified; K21.9 Gastro-esophageal reflux disease without esophagitis
CPT/HCPCS: 36415; 80048; 80053; 81003; 82550; 83690; 83735; 84484; 84703; 85025; 85027; 87086; 87804; 93005; 93010; 96361; 96365; 96375; 99283-25; G0378; J0131; J7030